=== PATIENT | male | born 1990 | race Caucasian/White ===

== ENCOUNTER 2016-12-18 16:33 | Emergency (ER) | payer OTHER ==
[2016-12-18 17:21] LABS: BILIRUBIN,URINE NEGATIVE (NEGATIVE); PH,URINE 6.5 PH (5.0-7.5)
[2016-12-18 17:32] LABS: UA CHARGE (STRIP ONLY) YES; UR CULTURE IF IND NOT INDICATED
[2016-12-18] MEDS ORDERED: HYDROcod/ACETAM 5/325 MG TABLET PO STA (19:27)
[2016-12-18 19:34] VITALS: BP 133/83
--- NOTE | 2016-12-18 19:35 | ED Physician Documentation ---
History of Present Illness - Stated complaint Stated Complaint: MALE - Chief complaint Chief Complaint: Abd Pain - History obtained from History obtained from: Patient, Family - History of Present Illness Timing: Chronic Pain level max: 7 Pain level now: 7 Improved by: nothing Worsened by: nothing - Additonal information Additional information: Patient is a 26-year-old male who presents to the emergency department with chronic prostatitis. Increased pain today. Sees his urologist tomorrow. No fevers. No vomiting. No difficulty with stream. Has had biopsies recently and has to have more performed tomorrow. Review of Systems Constitutional: denies: Fever, Chills Cardiac: denies: Chest pain / pressure Respiratory: denies: Cough GI: denies: Nausea, Vomiting : denies: Testicular pain, Testicular mass Skin: denies: Rash PD PAST MEDICAL HISTORY - Past Medical History Past Medical History: Yes Cardiovascular: None Respiratory: None Neuro: None : Other Psych: Post traumatic stress disorder Other Past Medical History: enlarged prostate, PTSD, CA - Past Surgical History Past Surgical History: Yes - Present Medications Home Medications: Ambulatory Orders Medication Instructions Recorded Confirmed oxyCODONE [Roxicodone] 10 mg PO Q4H PRN #20 tablet 02/14/16 Lorazepam [Ativan] 1 mg PO Q8H PRN #12 tablet 08/16/16 Naproxen 375 mg PO BID #15 tablet 08/16/16 Oxycodone HCl/Acetaminophen 1 each PO Q6HR PRN #15 tablet 08/16/16 [Oxycodone-Acetaminophen 10-325] Promethazine [Phenergan] 25 mg PO Q6H PRN #20 tab 08/16/16 oxyCODONE [Roxicodone] 5 - 10 mg PO Q6H PRN #20 tablet 11/23/16 Hydrocodone/Acetaminophen 1 each PO Q8H PRN #7 tablet 12/18/16 [Hydrocodon-Acetaminoph 7.5-325] Opium/Belladonn 60/16.2MG Supp [B 1 each ND Q6H #10 supp 12/18/16 & O Supp] - Allergies Allergies/Adverse Reactions: Allergies Allergy/AdvReac Type Severity Reaction Status Date / Time levofloxacin [From Levaquin] Allergy Unknown Verified 12/18/16 17:01 - Social History Does the pt smoke?: No Smoking Status: Never smoker Does the pt drink ETOH?: No Does the pt have substance abuse?: No - Immunizations Immunizations are current?: Yes PD ED PE NORMAL - Vitals Vital signs reviewed: Yes - General General: Alert and oriented X 3, No acute distress - Cardiac Cardiac: RRR - Respiratory Respiratory: No respiratory distress, Clear bilaterally - Abdomen Abdomen: Soft, Non tender, Non distended - Derm Derm: Warm and dry - Neuro Neuro: Alert and oriented X 3 - Psych Psych: Normal mood, Normal affect Results - Vitals Vitals: Oxygen O2 Source Room air - Labs Labs: Laboratory Tests 12/18/16 16:43 Urine Color YELLOW Urine Clarity CLEAR Urine pH 6.5 Ur Specific [place] 1.010 Urine Protein NEGATIVE Urine Glucose (UA) NEGATIVE Urine Ketones NEGATIVE Urine Occult Blood NEGATIVE Urine Nitrite NEGATIVE Urine Bilirubin NEGATIVE Urine Urobilinogen 0.2 (NORMAL) Ur Leukocyte Esterase NEGATIVE Ur Microscopic Review NOT INDICATED Urine Culture Comments NOT INDICATED PD MEDICAL DECISION MAKING - ED course Complexity details: reviewed old records, considered differential, d/w patient ED course: Patient with acute on chronic pain related to his chronic prostatitis. Sees urology tomorrow. Will trial on B and O suppositories along with a small amount of pain medication. Will follow up with his doctor for further evaluation and care. Patient counseled regarding signs and symptoms for which I believe and urgent re-evaluation would be necessary. Patient with good understanding of and agreement to plan and is comfortable going home at this time This document was made in part using voice recognition software. While efforts are made to proofread this document, sound alike and grammatical errors may occur. Departure - Departure Disposition: 01 Home, Self Care Clinical Impression: Prostatic pain Condition: Good Instructions: ED Prostatitis Follow-Up: Zain Kim MD [Primary Care Provider] - Within 1 week Prescriptions: Opium/Belladonn 60/16.2MG Supp [B & O Supp] 1 each ND Q6H #10 supp Hydrocodone/Acetaminophen [Hydrocodon-Acetaminoph 7.5-325] 1 each PO Q8H PRN #7 tablet PRN Reason: prostate pain Comments: Return if you worsen. Follow-up with [facility] tomorrow as scheduled. Do not drink alcohol or drive while on narcotic pain medicine. Note that many narcotic pain relievers also contain tylenol/acetaminophen. Please ensure that your total dose of acetaminophen from all sources does not exceed 3 grams (3000mg) per day. You may constipated on this medication, take a stool softener such as "Colace" twice a day while you are on it. Also recommend a [id number] laxative such as senna or MiraLAX any day that you do not have a bowel movement. If you received narcotic pain medication in the emergency department, do not drive or operate machinery for the next 24 hours. Discharge Date/Time: 12/18/16 19:48
[2016-12-18] MEDS ORDERED: HYDROcod/ACETAM 5/325 MG TABLET ONE (19:47)
== END 2016-12-18 19:48 | disposition home or self-care (01) ==
LOC: ED 16:33
DX: R10.30 Lower abdominal pain, unspecified (principal); N41.1 Chronic prostatitis; N40.0 Benign prostatic hyperplasia without lower urinary tract symptoms
CPT/HCPCS: 81003; 99283; A9270; 81001; 87086

== ENCOUNTER 2017-01-09 13:47 | Emergency (ER) | payer OTHER ==
[2017-01-09] MEDS ORDERED: DEXAMETHASONE 10 MG/ML VIAL PO STA (14:37)
--- NOTE | 2017-01-09 14:42 | ED Physician Documentation ---
PD HPI MALE - Stated complaint Stated Complaint: MALE - Chief complaint Chief Complaint: Abd Pain - History obtained from History obtained from: Patient - History of Present Illness Timing - onset: How many days ago (2) Timing - duration: Days (2) Timing - details: Gradual onset, Still present Associated symptoms: Other (pelvic pain/fullness) PD HPI MALE CONTRIB FACTORS: Sexually active. No: Exposed to STD Similar symptoms before: Diagnosis (prostate enlarged inflamed) Recently seen: Other (has regular visits to the urologist over this issue.) - Additional information Additional information: 26-year-old male with a prior history of testicular cancer has a history of prostate enlargement and intermittent episodes of pain. He was at work under a crawl space 2 days ago when he strained himself and following that he has had inflammation of his prostate again that is causing pain. He has had this happen to him previously usually last 3-4 days and his doctor usually will prescribe some oxycodone for him. He has been under treatment for his prostate for the past 2 years and he has tried multiple different antibiotics he has had a biopsy he is been to see the urologist at the [facility] and he is preparing to have a nerve ablation done. Review of Systems Constitutional: denies: Fever, Chills, Myalgias, Fatigue Eyes: denies: Decreased vision Ears: denies: Ear pain Nose: denies: Congestion Throat: denies: Sore throat Cardiac: denies: Chest pain / pressure, Palpitations Respiratory: denies: Dyspnea, Cough GI: denies: Abdominal Pain, Nausea, Vomiting : reports: Other (Pelvic fullness and cramping). denies: Dysuria, Frequency, Discharge Skin: denies: Rash Musculoskeletal: denies: Neck pain, Back pain, Extremity pain PD PAST MEDICAL HISTORY - Past Medical History Cardiovascular: None Respiratory: None Neuro: None : Other Psych: Post traumatic stress disorder - Past Surgical History Past Surgical History: Yes - Present Medications Home Medications: Ambulatory Orders Medication Instructions Recorded Confirmed Alprazolam [Xanax] 0.5 mg PO TID PRN 01/09/17 01/09/17 Cyclobenzaprine [Flexeril] 10 mg PO TID PRN 01/09/17 01/09/17 Sertraline [Zoloft] 3 tab PO DAILY 01/09/17 01/09/17 Terazosin HCl 1 tab PO DAILY 01/09/17 01/09/17 oxyCODONE/ACET 5/325 [Percocet 5 1 - 2 each PO Q6H PRN #20 tablet 01/09/17 mg/325 mg] - Allergies Allergies/Adverse Reactions: Allergies Allergy/AdvReac Type Severity Reaction Status Date / Time levofloxacin [From Levaquin] Allergy Unknown Verified 12/18/16 17:01 celecoxib [From Celebrex] AdvReac Headache Verified 01/09/17 14:04 indomethacin AdvReac Headache Verified 01/09/17 14:04 - Social History Does the pt smoke?: No Smoking Status: Never smoker Does the pt drink ETOH?: No Does the pt have substance abuse?: No - Immunizations Immunizations are current?: Yes PD ED PE NORMAL - Vitals Vital signs reviewed: Yes (Tachycardic and hypertensive) - General General: No acute distress, Well developed/nourished - HEENT HEENT: Atraumatic, PERRL - Neck Neck: Supple, no meningeal sign - Respiratory Respiratory: No respiratory distress - Derm Derm: Normal color, Warm and dry, No rash - Extremities Extremities: No deformity, No edema - Neuro Neuro: No motor deficit, No sensory deficit - Psych Psych: Normal mood, Normal affect Results - Vitals Vitals: Vital Signs - 24 hr 01/09/17 13:50 Temperature 36.6 C Heart Rate 114 H Respiratory 18 Rate Blood Pressure 155/94 H O2 Saturation 99 Oxygen O2 Source Room air PD MEDICAL DECISION MAKING - ED course Complexity details: considered differential, d/w patient, d/w family ED course: 26-year-old male with chronic prostate inflammation has done something to irritate his prostate. He has done this a number of times previously. He has usually had this last 3-4 days. He is on his second day. Here in the emergency department he is given dexamethasone as a single dose. He has indicated that prednisone did help when he took this previously. Departure - Departure Disposition: 01 Home, Self Care Clinical Impression: Prostatic pain Condition: Stable Instructions: ED Prostatitis Follow-Up: Zain Kim MD [Primary Care Provider] - Prescriptions: oxyCODONE/ACET 5/325 [Percocet 5 mg/325 mg] 1 - 2 each PO Q6H PRN #20 tablet PRN Reason: Pain
[2017-01-09] MEDS ORDERED: CHERRY SYRUP 10 ML UDC PO ONE (14:46)
[2017-01-09] MEDS ORDERED: DEXAMETHASONE 10 MG/ML VIAL ONE (14:46)
[2017-01-09 14:55] VITALS: BP 138/89
== END 2017-01-09 14:56 | disposition home or self-care (01) ==
LOC: ED 13:47
DX: N42.89 Other specified disorders of prostate (principal); N41.1 Chronic prostatitis; Z85.47 Personal history of malignant neoplasm of testis
CPT/HCPCS: 99283; A9270

== ENCOUNTER 2017-03-02 18:20 | Emergency (ER) | payer OTHER ==
[2017-03-02 19:16] LABS: BASOPHILS % (AUTO) 0.3 %; EOSINOPHILS % (AUTO) 0.1 %; HCT - HEMATOCRIT 47.1 % (42.0-52.0); LYMPHOCYTES % (AUTO) 21.1 %; MEAN CORPUSCULAR HEMOGLOBIN 29.5 pg (27.0-31.0); MEAN CORPUSCULAR VOLUME 86.8 fL (80.0-94.0); MEAN PLATELET VOLUME 8.3 fL (7.4-11.4); MONOCYTES # (AUTO) 0.4 10^3/uL (0.0-1.0); MONOCYTES % (AUTO) 3.8 %; NEUTROPHILS # (AUTO) 7.2 10^3/uL (1.5-6.6); NEUTROPHILS % (AUTO) 74.7 %; NUCLEATED RED BLOOD CELLS AUTO 0.1 /100WBC; RED BLOOD COUNT 5.43 10^6/uL (4.70-6.10); UNCORRECTED WHITE BLOOD COUNT 9.7 x10^3/uL; WHITE BLOOD COUNT 9.7 x10^3/uL (4.8-10.8)
[2017-03-02 19:30] LABS: ALBUMIN/GLOBULIN RATIO 1.5 (1.0-2.2); BILIRUBIN,TOTAL 0.7 mg/dL (0.2-1.0); CREATININE 0.7 mg/dL (0.6-1.2); POTASSIUM 3.5 mmol/L (3.5-5.0); TOTAL PROTEIN 8.4 g/dL (6.7-8.2)
--- NOTE | 2017-03-02 20:39 | ED Physician Documentation ---
PD HPI BACK PAIN - Stated complaint Stated Complaint: BACK MUSCLE PX - Chief complaint Chief Complaint: General - History obtained from History obtained from: Patient - History of Present Illness Timing - onset: How many days ago (2) Timing - duration: Days (2) Timing - details: Gradual onset, Still present Location: Lower (and lower abd/pelvic area) Quality: Pain, Spasm Associated symptoms: Other (frequency of urine). No: Fever, Weakness, Incontinent of urine Improves with: No: Rest, Position Worsened by: No: Movement, Twisting Contributing factors: No: Lifting, Twisting, Trauma Similar symptoms before: Diagnosis (pelvic swelling and muscle spasms in pelvic area.) Recently seen: Not recently seen Review of Systems Constitutional: denies: Fever, Chills GI: reports: Abdominal Pain, Nausea. denies: Vomiting, Constipation, Diarrhea : reports: Frequency. denies: Dysuria, Incontinent Skin: denies: Rash, Lesions Musculoskeletal: reports: Back pain (lower lumbar/sacral area). denies: Neck pain PD PAST MEDICAL HISTORY - Past Medical History Cardiovascular: None Respiratory: None Neuro: None : Other (prostatitis chronic. Has prior testicular cancer with surgery for testicle and ab) Psych: Post traumatic stress disorder - Past Surgical History Past Surgical History: Yes - Present Medications Home Medications: Ambulatory Orders Medication Instructions Recorded Confirmed Sertraline [Zoloft] 3 tab PO DAILY 01/09/17 03/02/17 Terazosin HCl 1 tab PO DAILY 01/09/17 03/02/17 Dexamethasone [Decadron] 4 mg PO DAILY #5 tablet 03/02/17 Oxybutynin [Ditropan] 5 mg PO TID PRN #15 tablet 03/02/17 Tramadol HCl 50 mg PO Q6H PRN #20 tablet 03/02/17 - Allergies Allergies/Adverse Reactions: Allergies Allergy/AdvReac Type Severity Reaction Status Date / Time levofloxacin [From Levaquin] Allergy Unknown Verified 03/02/17 18:31 celecoxib [From Celebrex] AdvReac Headache Verified 03/02/17 18:31 indomethacin AdvReac Headache Verified 03/02/17 18:31 - Social History Does the pt smoke?: No Smoking Status: Never smoker Does the pt drink ETOH?: No Does the pt have substance abuse?: No - Immunizations Immunizations are current?: Yes PD ED PE NORMAL - Vitals Vital signs reviewed: Yes - General General: Alert and oriented X 3, No acute distress, Well developed/nourished, Other - HEENT HEENT: Pharynx benign - Neck Neck: Supple, no meningeal sign, No adenopathy - Cardiac Cardiac: RRR, No murmur - Respiratory Respiratory: Clear bilaterally - Abdomen Abdomen: Soft, Non tender - Male Male : Other (right testicle missing. No herniae. No skin redness nor sores. Penis normal. ) - Rectal Rectal: Deferred Results - Vitals Vitals: Oxygen O2 Source Room air - Labs Labs: Laboratory Tests 03/02/17 03/02/17 03/02/17 19:05 19:05 21:19 WBC 9.7 RBC 5.43 Hgb 16.0 Hct 47.1 MCV 86.8 MCH 29.5 MCHC 34.0 RDW 13.0 Plt Count 281 MPV 8.3 Neut # 7.2 H Lymph # 2.0 [place] # 0.4 Eos # 0.0 Baso # 0.0 Absolute Nucleated RBC 0.01 Nucleated RBC % 0.1 Sodium 139 Potassium 3.5 Chloride 104 Carbon Dioxide 22 Anion Gap 13.0 BUN 8 Creatinine 0.7 Estimated GFR (MDRD) 135 Glucose 112 H Calcium 10.0 Total Bilirubin 0.7 AST 27 ALT 25 Alkaline Phosphatase 54 Total Protein 8.4 H Albumin 5.1 Globulin 3.3 Albumin/Globulin Ratio 1.5 Lipase 21 L Urine Color YELLOW Urine Clarity CLEAR Urine pH 6.0 Ur Specific [place] 1.025 Urine Protein NEGATIVE Urine Glucose (UA) NEGATIVE Urine Ketones 15 H Urine Occult Blood NEGATIVE Urine Nitrite NEGATIVE Urine Bilirubin NEGATIVE Urine Urobilinogen 0.2 (NORMAL) Ur Leukocyte Esterase NEGATIVE Ur Microscopic Review NOT INDICATED Urine Culture Comments NOT INDICATED PD MEDICAL DECISION MAKING - ED course Complexity details: considered differential (h/o prostate enlargement and infection. Has had some spasm/muscle cramp tupe pains in area. Bladder scan post void showed zero, suggesting spasm and over-emptying.), d/w patient Departure - Departure Disposition: 01 Home, Self Care Clinical Impression: Spasm of muscle of lower back, Painful bladder spasm, Prostatic pain Condition: Stable Record reviewed to determine appropriate education?: Yes Follow-Up: Zain Kim MD [Primary Care Provider] - Prescriptions: Dexamethasone [Decadron] 4 mg PO DAILY #5 tablet Oxybutynin [Ditropan] 5 mg PO TID PRN #15 tablet PRN Reason: Spasms Tramadol HCl 50 mg PO Q6H PRN #20 tablet PRN Reason: Pain Comments: Continue the Decadron steroid daily for 5 more days for presumed inflammation. Tylenol or ibuprofen if needed for mild pain. I think her having some bladder spasm component and so use the oxybutynin 3 times a day as needed for spasms. Add tramadol if needed for pain. Follow-up with Dr. Kim over the next several days. Discharge Date/Time: 03/02/17 22:32
[2017-03-02] MEDS ORDERED: KETOROLAC 60 MG/2 ML VIAL IM STA (21:14)
[2017-03-02] MEDS ORDERED: OXYBUTYNIN 5MG TABLET PO STA (21:15)
[2017-03-02] MEDS ORDERED: DEXAMETHASONE 10 MG/ML VIAL PO STA (21:15)
[2017-03-02] MEDS ORDERED: traMADol 50 MG TABLET PO STA (21:15)
[2017-03-02] MEDS ORDERED: traMADol 50 MG TABLET PO ONE (21:28)
[2017-03-02] MEDS ORDERED: KETOROLAC 30 MG/ML VIAL ONE (21:29)
[2017-03-02] MEDS ORDERED: DEXAMETHASONE 10 MG/ML VIAL ONE (21:29)
[2017-03-02 21:32] LABS: UA CHARGE (STRIP ONLY) YES; UR CULTURE IF IND NOT INDICATED
[2017-03-02 21:33] LABS: BILIRUBIN,URINE NEGATIVE (NEGATIVE)
[2017-03-02 22:31] VITALS: BP 117/80
== END 2017-03-02 22:32 | disposition home or self-care (01) ==
LOC: ED 18:20
DX: M62.830 Muscle spasm of back (principal); R39.89 Other symptoms and signs involving the genitourinary system; N42.89 Other specified disorders of prostate
CPT/HCPCS: 36415; 51798; 80053; 81003; 83690; 85025; 96372; 99283; A9270; 81001; 87086

== ENCOUNTER 2017-03-07 12:16 | Emergency (ER) | payer OTHER ==
[2017-03-07 13:01] VITALS: BP 153/94
[2017-03-07] MEDS ORDERED: DEXAMETHASONE 10 MG/ML VIAL IM STA (13:11)
--- NOTE | 2017-03-07 13:13 | ED Physician Documentation ---
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.) Review of Systems Constitutional: denies: Fever, Chills Throat: reports: Reviewed and negative Respiratory: reports: Reviewed and negative GI: reports: Reviewed and negative PD PAST MEDICAL HISTORY - Past Medical History Past Medical History: Yes Cardiovascular: None Respiratory: None Neuro: None : Other Psych: Post traumatic stress disorder Other Past Medical History: Hx cancer - Past Surgical History Past Surgical History: Yes - Present Medications Home Medications: Ambulatory Orders Medication Instructions Recorded Confirmed Sertraline [Zoloft] 3 tab PO DAILY 01/09/17 03/07/17 Terazosin HCl 5 tab PO DAILY 01/09/17 03/07/17 Tramadol HCl 50 mg PO Q6H PRN #20 tablet 03/02/17 03/07/17 Oxycodone HCl/Acetaminophen 1 each PO Q6H PRN #15 tablet 03/07/17 [Percocet 10-325 mg Tablet] predniSONE [Deltasone] 20 mg PO [id number] #21 tab 03/07/17 - Allergies Allergies/Adverse Reactions: Allergies Allergy/AdvReac Type Severity Reaction Status Date / Time levofloxacin [From Levaquin] Allergy Unknown Verified 03/07/17 12:25 celecoxib [From Celebrex] AdvReac Headache Verified 03/07/17 12:25 indomethacin AdvReac Headache Verified 03/07/17 12:25 - Social History Does the pt smoke?: No Smoking Status: Never smoker Does the pt drink ETOH?: No Does the pt have substance abuse?: No - Immunizations Immunizations are current?: Yes PD ED PE NORMAL - Vitals Vital signs reviewed: Yes - General General: Alert and oriented X 3, No acute distress - Back Back: Other (Lumbar spine is nontender although he does wince a bit with motion. He has partially and mildly diminished sensation in the left L4-L5 distribution, but symmetric Babinski and patellar reflexes, normal strength in flexion and extension at the ankles and knees.) - Neuro Neuro: Alert and oriented X 3, Normal speech Results - Vitals Vitals: Vital Signs - 24 hr 03/07/17 03/07/17 12:20 13:00 Temperature 36.5 C 37.0 C Heart Rate 55 L 67 Respiratory 16 17 Rate Blood Pressure 147/87 H 153/94 H O2 Saturation 95 99 Oxygen O2 Source Room air - Labs Labs: Laboratory Tests 03/07/17 13:18 Urine Opiates Screen NEGATIVE Ur Oxycodone Screen NEGATIVE Urine Methadone Screen NEGATIVE Ur Propoxyphene Screen NEGATIVE Ur Barbiturates Screen NEGATIVE Ur Tricyclics Screen NEGATIVE Ur Phencyclidine Scrn NEGATIVE Ur Amphetamine Screen NEGATIVE U Methamphetamines Scrn NEGATIVE U Benzodiazepines Scrn NEGATIVE Urine Cocaine Screen NEGATIVE U Cannabinoids Screen NEGATIVE PD MEDICAL DECISION MAKING - ED course ED course: Prescription monitoring program was reviewed before going into the room, notable for looking like he was in pain management receiving 112, 10 mg oxycodone/acetaminophen every month from a pain management nurse practitioner. Last prescription was on February 13. He did not mention this when I asked him if he taking any pain medications. When I confronted him with this information he says he was recently kicked out of pain management for discordant drug screens. Because of that I offered to give him a small number of narcotics if he passed a drug screen other than things that might be expected on there and he was cooperative with that idea. This patient has seemingly uncomplicated musculoskeletal back pain. The patient has no "red flags." Specifically denies IV drug use, fevers, incontinence, saddle anesthesia. Spinal epidural abscess was considered, given that the patient has no fever, is not diabetic, has no spinal tenderness, does not use IV drugs, and has no bilateral neurologic symptoms, the diagnosis of spinal epidural abscess is considered exceedingly unlikely. Departure - Departure Disposition: 01 Home, Self Care Clinical Impression: Lumbar radiculopathy, acute Condition: Good Record reviewed to determine appropriate education?: Yes Instructions: ED Sciatica Prescriptions: Oxycodone HCl/Acetaminophen [Percocet 10-325 mg Tablet] 1 each PO Q6H PRN #15 tablet PRN Reason: Pain predniSONE [Deltasone] 20 mg PO [id number] #21 tab Comments: Call your doctor to arrange a follow-up appointment, make the next available appointment. In the interim, return anytime if worse or if new symptoms develop. Your blood pressure was elevated today on check into the emergency department. This does not mean that you have hypertension, it is a common phenomenon to come to the emergency department and have elevated blood pressure. I recommend that you see your primary care physician within the week to have it rechecked when you are feeling better. Do not drink or drive while taking narcotic pain medication. Note that many narcotic pain relievers also contain Tylenol/acetaminophen. Please ensure that your total dose of acetaminophen from all sources does not exceed 3 g (3000 mg) per day. You may get constipated while on this medication. Take a stool softener such as Colace twice a day while you are on it. Also add an [id number] laxative such as senna or MiraLAX on any day that you do not have a bowel movement. If you received a narcotic pain medication or sedative while in the emergency department, do not drive for the next 24 hours. Discharge Date/Time: 03/07/17 14:20
[2017-03-07] MEDS ORDERED: DEXAMETHASONE 10 MG/ML VIAL ONE (13:27)
[2017-03-07] MEDS ORDERED: oxyCOD/ACETAMIN 5 MG/325 MG TABLET PO STA (14:07)
[2017-03-07] MEDS ORDERED: oxyCOD/ACETAMIN 5 MG/325 MG TABLET PO ONE (14:22)
== END 2017-03-07 14:20 | disposition home or self-care (01) ==
LOC: ED 12:16
DX: M54.16 Radiculopathy, lumbar region (principal); R03.0 Elevated blood-pressure reading, without diagnosis of hypertension; G89.29 Other chronic pain; Z85.47 Personal history of malignant neoplasm of testis
CPT/HCPCS: 80306; 96372; 99283; A9270

== ENCOUNTER 2017-03-11 14:46 | Emergency (ER) | payer OTHER ==
[2017-03-11 17:21] VITALS: BP 122/85
--- NOTE | 2017-03-11 17:42 | ED Physician Documentation ---
History of Present Illness - Stated complaint Stated Complaint: BACK PAIN - Chief complaint Chief Complaint: Back Pain - History obtained from History obtained from: Patient (pt is here for evaluation of right sided back pain. he was seen in the ER on friday for acute onset of the pain. stated that he had a neg work up. was seen by his PCM yesterday. he states that he went back to work today and bent over and felt another pop and had an increase in his pain. No new symptoms, no urinary sx, no bowel sx, no fevers.) Review of Systems Unable to obtain: Unresponsive Constitutional: denies: Fever, Chills Cardiac: denies: Chest pain / pressure Respiratory: denies: Dyspnea GI: denies: Abdominal Pain, Nausea, Vomiting, Constipation, Diarrhea : denies: Dysuria, Frequency Skin: denies: Rash, Lesions Musculoskeletal: reports: Back pain. denies: Neck pain, Extremity pain, Joint pain Neurologic: denies: Generalized weakness, Focal weakness, Numbness, Headache, LOC PD PAST MEDICAL HISTORY - Past Medical History Cardiovascular: None Respiratory: None Neuro: None : Other Psych: Post traumatic stress disorder - Past Surgical History Past Surgical History: Yes - Present Medications Home Medications: Ambulatory Orders Medication Instructions Recorded Confirmed Sertraline [Zoloft] 3 tab PO DAILY 01/09/17 03/11/17 Terazosin HCl 5 tab PO DAILY 01/09/17 03/11/17 Tramadol HCl 50 mg PO Q6H PRN #20 tablet 03/02/17 03/11/17 Oxycodone HCl/Acetaminophen 1 each PO Q6H PRN #15 tablet 03/07/17 03/11/17 [Percocet 10-325 mg Tablet] predniSONE [Deltasone] 20 mg PO [id number] #21 tab 03/07/17 03/11/17 HYDROcodone/ACET 10/325 [[place] 10 1 each PO Q6H #10 tablet 03/11/17 mg/325 mg] - Allergies Allergies/Adverse Reactions: Allergies Allergy/AdvReac Type Severity Reaction Status Date / Time levofloxacin [From Levaquin] Allergy Unknown Verified 03/07/17 12:25 celecoxib [From Celebrex] AdvReac Headache Verified 03/07/17 12:25 indomethacin AdvReac Headache Verified 03/07/17 12:25 - Social History Does the pt smoke?: No Smoking Status: Never smoker Does the pt drink ETOH?: No Does the pt have substance abuse?: No - Immunizations Immunizations are current?: Yes PD ED PE NORMAL - Vitals Vital signs reviewed: Yes - General General: Alert and oriented X 3, No acute distress, Well developed/nourished - Abdomen Abdomen: Normal bowel sounds, Soft, Non tender - Back Back: No CVA TTP, No spinal TTP, Other (TTP left paraspinal area. No muscle fullness. ) - Derm Derm: Normal color, No rash - Neuro Neuro: Alert and oriented X 3, No motor deficit, No sensory deficit, Normal speech Results - Vitals Vitals: Vital Signs - 24 hr 03/11/17 03/11/17 14:54 17:20 Temperature 36.8 C Heart Rate 86 75 Respiratory 18 18 Rate Blood Pressure 134/90 H 122/85 H O2 Saturation 98 99 Oxygen O2 Source Room air PD MEDICAL DECISION MAKING - ED course Complexity details: d/w patient ED course: Pt with acute increase in his back pain, doubt CA, fracture, zoster or mets. Discussed with pt. offered toradol but he declined. He has NSAID's at home. is on steroids from his last visit. informed him that it may take weeks for this to get better. he expressed understanding. Departure - Departure Disposition: 01 Home, Self Care Clinical Impression: Back pain Condition: Good Instructions: ED Low Back Pain Injury Follow-Up: Zain Kim MD [Primary Care Provider] - Prescriptions: HYDROcodone/ACET 10/325 [[place] 10 mg/325 mg] 1 each PO Q6H #10 tablet Comments: Treatments like we discussed. Return to the ER for any new or worsening symptoms. Forms: Activity restrictions
[2017-03-11] MEDS ORDERED: HYDROcod/ACETAM 5/325 MG TABLET PO STA (17:50)
[2017-03-11] MEDS ORDERED: HYDROcod/ACETAM 5/325 MG TABLET ONE (17:58)
== END 2017-03-11 17:55 | disposition home or self-care (01) ==
LOC: ED 14:46
DX: M54.9 Dorsalgia, unspecified (principal)
CPT/HCPCS: 99283; A9270

== ENCOUNTER 2017-06-11 14:29 | Emergency (ER) | payer OTHER ==
[2017-06-11 14:58] VITALS: BP 101/62
[2017-06-11] MEDS ORDERED: LORazepam 0.5 MG TABLET PO STA (15:41)
--- NOTE | 2017-06-11 15:44 | ED Physician Documentation ---
PD HPI MHE - Stated complaint Stated Complaint: NIGHT TERRORS,ANXIETY - Chief complaint Chief Complaint: MHE - History obtained from History obtained from: Patient - History of Present Illness Primary symptom: Anxiety (Long standing anxiety and depression worse for the last 5 days with poor sleep. No SI/HI. Has been on ativan 2mg PO TID in the past which helped but was too strong.) Review of Systems Constitutional: reports: Reviewed and negative Cardiac: reports: Reviewed and negative Respiratory: reports: Reviewed and negative PD PAST MEDICAL HISTORY - Past Medical History Past Medical History: Yes Cardiovascular: None Respiratory: None Neuro: None : Other Psych: Post traumatic stress disorder - Past Surgical History Past Surgical History: Yes - Present Medications Home Medications: Ambulatory Orders Medication Instructions Recorded Confirmed Sertraline [Zoloft] 3 tab PO DAILY 01/09/17 03/11/17 Terazosin HCl 5 tab PO DAILY 01/09/17 03/11/17 Tramadol HCl 50 mg PO Q6H PRN #20 tablet 03/02/17 03/11/17 Oxycodone HCl/Acetaminophen 1 each PO Q6H PRN #15 tablet 03/07/17 03/11/17 [Percocet 10-325 mg Tablet] predniSONE [Deltasone] 20 mg PO [id number] #21 tab 03/07/17 03/11/17 HYDROcodone/ACET 10/325 [[place] 10 1 each PO Q6H #10 tablet 03/11/17 mg/325 mg] Lorazepam [Ativan] 1 mg PO TID PRN #15 tablet 06/11/17 - Allergies Allergies/Adverse Reactions: Allergies Allergy/AdvReac Type Severity Reaction Status Date / Time levofloxacin [From Levaquin] Allergy Unknown Verified 03/07/17 12:25 celecoxib [From Celebrex] AdvReac Headache Verified 03/07/17 12:25 indomethacin AdvReac Headache Verified 03/07/17 12:25 - Social History Does the pt smoke?: No Smoking Status: Never smoker Does the pt drink ETOH?: No Does the pt have substance abuse?: No - Immunizations Immunizations are current?: Yes PD ED PE NORMAL - Vitals Vital signs reviewed: Yes - General General: Alert and oriented X 3, No acute distress - Neuro Neuro: Alert and oriented X 3, Normal speech Eye Opening: Spontaneous Motor: Obeys Commands Verbal: Oriented GCS Score: 15 - Psych Psych: Normal mood, Normal affect Results - Vitals Vitals: Vital Signs - 24 hr 06/11/17 14:53 Temperature 36.4 C L Heart Rate 72 Respiratory 22 Rate Blood Pressure 101/62 O2 Saturation 98 Oxygen O2 Source Room air PD MEDICAL DECISION MAKING - ED course ED course: I offered telepsych but would prefer to see a psychiatrist in person. Departure - Departure Disposition: Home, Self Care Condition: Good Record reviewed to determine appropriate education?: Yes Instructions: ED Stress React Follow-Up: Zain Kim MD [Primary Care Provider] - Prescriptions: Lorazepam [Ativan] 1 mg PO TID PRN #15 tablet PRN Reason: Anxiety
--- NOTE | 2017-06-12 12:51 | ED Physician Documentation ---
ED Addendum - Addendum Addendum: 06/12/17 12:51 Diagnosis, anxiety.
== END 2017-06-11 16:00 | disposition home or self-care (01) ==
LOC: ED 14:29
DX: F41.8 Other specified anxiety disorders (principal); F43.10 Post-traumatic stress disorder, unspecified
CPT/HCPCS: 99283; A9270

== ENCOUNTER 2017-06-12 13:59 | Emergency (ER) | payer OTHER ==
[2017-06-12] MEDS ORDERED: DEXAMETHASONE 10 MG/ML VIAL IVP STA (14:48)
[2017-06-12] MEDS ORDERED: HYDROmorphone 1 MG/ML SYRINGE IVP STA (14:48)
[2017-06-12] MEDS ORDERED: ONDANSETRON 4 MG/2 ML VIAL IVP STA (14:48)
[2017-06-12] MEDS ORDERED: SODIUM CHLORIDE 0.9% 1,000 ML IV ONE (14:48)
--- NOTE | 2017-06-12 14:49 | ED Physician Documentation ---
PD HPI MALE - Stated complaint Stated Complaint: RECTAL PAIN - Chief complaint Chief Complaint: General - History obtained from History obtained from: Patient, Family - History of Present Illness Timing - onset: How many days ago (2) Timing - duration: Days (2) Timing - details: Gradual onset, Still present Associated symptoms: Other (prostate pain similar to prior) PD HPI MALE CONTRIB FACTORS: Sexually active Similar symptoms before: Diagnosis (prostatitis/prostate inflamation) Recently seen: Emergency Dept - Additional information Additional information: 27-year-old male with a prior history of testicular cancer treated with orchidectomy and Retroperitoneal lymph node dissection has had problems with intermittent prostatitis. He has had inflammation of the prostate and feels that none of the treatments that he has had has had have resolved this issue. He indicates that if he is does too much strenuous activity he will have inflammation. He has had inflammation now for the past 2 days and he is quite uncomfortable he does get some vomiting with this happens and feels that he is dehydrated. Review of Systems Constitutional: reports: Chills. denies: Fever Eyes: denies: Decreased vision Ears: denies: Ear pain Nose: denies: Rhinorrhea / runny nose, Congestion Throat: denies: Sore throat Cardiac: denies: Chest pain / pressure, Palpitations Respiratory: denies: Dyspnea, Cough GI: reports: Abdominal Pain, Nausea, Vomiting : denies: Dysuria, Frequency Skin: denies: Rash, Lesions Musculoskeletal: reports: Back pain. denies: Neck pain, Extremity pain Neurologic: denies: Generalized weakness, Focal weakness, Numbness PD PAST MEDICAL HISTORY - Past Medical History Cardiovascular: None Respiratory: None Neuro: None : Other Psych: Post traumatic stress disorder - Past Surgical History Past Surgical History: Yes - Present Medications Home Medications: Ambulatory Orders Medication Instructions Recorded Confirmed Sertraline [Zoloft] 3 tab PO DAILY 01/09/17 03/11/17 Terazosin HCl 5 tab PO DAILY 01/09/17 03/11/17 Tramadol HCl 50 mg PO Q6H PRN #20 tablet 03/02/17 03/11/17 Oxycodone HCl/Acetaminophen 1 each PO Q6H PRN #15 tablet 03/07/17 03/11/17 [Percocet 10-325 mg Tablet] predniSONE [Deltasone] 20 mg PO [id number] #21 tab 03/07/17 03/11/17 HYDROcodone/ACET 10/325 [[place] 10 1 each PO Q6H #10 tablet 03/11/17 mg/325 mg] Lorazepam [Ativan] 1 mg PO TID PRN #15 tablet 06/11/17 Dexamethasone [Decadron] 4 mg PO DAILY #5 tablet 06/12/17 - Allergies Allergies/Adverse Reactions: Allergies Allergy/AdvReac Type Severity Reaction Status Date / Time levofloxacin [From Levaquin] Allergy Unknown Verified 03/07/17 12:25 celecoxib [From Celebrex] AdvReac Headache Verified 03/07/17 12:25 indomethacin AdvReac Headache Verified 03/07/17 12:25 - Social History Does the pt smoke?: No Smoking Status: Never smoker Does the pt drink ETOH?: No Does the pt have substance abuse?: No - Immunizations Immunizations are current?: Yes PD ED PE NORMAL - Vitals Vital signs reviewed: Yes (tachy and hpyertensive ) - General General: Alert and oriented X 3, Well developed/nourished, Other (27 y/o male appears to be in pain ) - HEENT HEENT: Atraumatic, PERRL, EOMI - Neck Neck: Supple, no meningeal sign, No bony TTP - Cardiac Cardiac: No murmur, Other (tachy to 100) - Respiratory Respiratory: No respiratory distress, Clear bilaterally - Abdomen Abdomen: Soft, Non tender, Other (well healed long midline scar) - Rectal Rectal: Other (rectal tone is normal there no internal or external hemorrhoids. The prostate is midly enlarged boggy and tender reproducing the symptoms the patient is having. Prostate massage is done with continuous pressure and the gland does shrink partially ) - Back Back: No CVA TTP, No spinal TTP - Derm Derm: Normal color, Warm and dry, No rash - Extremities Extremities: No deformity, No edema - Neuro Neuro: No motor deficit, No sensory deficit Eye Opening: Spontaneous Motor: Obeys Commands Verbal: Oriented GCS Score: 15 - Psych Psych: Normal mood, Normal affect Results - Vitals Vitals: Vital Signs - 24 hr 06/12/17 06/12/17 14:05 17:08 Temperature 37.1 C 37.1 C Heart Rate 112 H 87 Respiratory 18 18 Rate Blood Pressure 129/86 H 139/122 H O2 Saturation 100 100 Oxygen O2 Source Room air - Labs Labs: Laboratory Tests 06/12/17 06/12/17 06/12/17 15:50 15:50 16:30 WBC 8.3 RBC 5.46 Hgb 16.4 Hct 46.8 MCV 85.7 MCH 30.0 MCHC 35.0 RDW 12.3 Plt Count 280 MPV 8.5 Neut # 6.0 Lymph # 1.8 [place] # 0.3 Eos # 0.0 Baso # 0.0 Absolute Nucleated RBC 0.00 Nucleated RBC % 0.0 Sodium 138 Potassium 3.4 L Chloride 102 Carbon Dioxide 24 Anion Gap 12.0 BUN 9 Creatinine 0.9 Estimated GFR (MDRD) 100 Glucose 92 Calcium 9.6 Total Bilirubin 0.8 AST 23 ALT 22 Alkaline Phosphatase 62 Total Protein 8.7 H Albumin 5.2 Globulin 3.5 Albumin/Globulin Ratio 1.5 Lipase 21 L Urine Color YELLOW Urine Clarity CLEAR Urine pH 7.0 Ur Specific [place] 1.020 Urine Protein NEGATIVE Urine Glucose (UA) NEGATIVE Urine Ketones 15 H Urine Occult Blood NEGATIVE Urine Nitrite NEGATIVE Urine Bilirubin SMALL H Urine Urobilinogen 0.2 (NORMAL) Ur Leukocyte Esterase NEGATIVE Ur Microscopic Review NOT INDICATED Urine Culture Comments NOT INDICATED PD MEDICAL DECISION MAKING - ED course Complexity details: reviewed old records, reviewed results, re-evaluated patient , considered differential, d/w patient, d/w family ED course: 27-year-old male with a history of chronic prostatitis has developed an acute inflammation of his prostate I do not believe that this is an infectious process I am concerned that the patient may have some swelling that is related to the retroperitoneal lymph node dissection. We administered IV decadron and we will provide the patient with a 5 day course and have him follow up with his urologist. Here in the ED he was hydrated with a liter of saline and he did receive IV dilaudid which did help with the pain. Departure - Departure Disposition: 01 Home, Self Care Clinical Impression: Prostatic pain Instructions: Prostatitis Chronic Pelvic Pain, ED Prostatitis Follow-Up: Zain Kim MD [Primary Care Provider] - Prescriptions: Dexamethasone [Decadron] 4 mg PO DAILY #5 tablet Discharge Date/Time: 06/12/17 17:11
[2017-06-12 16:01] LABS: BASOPHILS % (AUTO) 0.6 %; EOSINOPHILS % (AUTO) 0.2 %; HGB - HEMOGLOBIN 16.4 g/dL (14.0-18.0); LYMPHOCYTES # (AUTO) 1.8 10^3/uL (1.5-3.5); LYMPHOCYTES % (AUTO) 22.3 %; MEAN CORPUSCULAR VOLUME 85.7 fL (80.0-94.0); MEAN PLATELET VOLUME 8.5 fL (7.4-11.4); MONOCYTES # (AUTO) 0.3 10^3/uL (0.0-1.0); MONOCYTES % (AUTO) 4.1 %; NEUTROPHILS % (AUTO) 72.8 %; PLT - PLATELET COUNT 280 10^3/uL (130-450); RED BLOOD COUNT 5.46 10^6/uL (4.70-6.10); RED CELL DISTRIBUTION WIDTH 12.3 % (12.0-15.0); WHITE BLOOD COUNT 8.3 x10^3/uL (4.8-10.8)
[2017-06-12 16:14] LABS: ALBUMIN 5.2 g/dL (3.2-5.5); ALBUMIN/GLOBULIN RATIO 1.5 (1.0-2.2); BILIRUBIN,TOTAL 0.8 mg/dL (0.2-1.0); CALCIUM 9.6 mg/dL (8.5-10.3); CREATININE 0.9 mg/dL (0.6-1.2); TOTAL PROTEIN 8.7 g/dL (6.7-8.2)
[2017-06-12 16:35] LABS: GLUCOSE, URINE (UA) NEGATIVE (NEGATIVE); KETONES,URINE (UA) 15 mg/dL (NEGATIVE); LEUKOCYTE ESTERASE, URINE NEGATIVE (NEGATIVE); NITRITE,URINE NEGATIVE (NEGATIVE); OCCULT BLOOD,URINE NEGATIVE (NEGATIVE); PROTEIN,URINE NEGATIVE (NEGATIVE); UROBILINOGEN,URINE 0.2 (NORMAL) E.U./dL (NORMAL)
[2017-06-12 16:45] LABS: CLARITY,URINE CLEAR (CLEAR)
[2017-06-12 16:46] LABS: BILIRUBIN,URINE SMALL (NEGATIVE); ICTOTEST,URINE POSITIVE
[2017-06-12 17:09] VITALS: BP 139/122
== END 2017-06-12 17:11 | disposition home or self-care (01) ==
LOC: ED 13:59
DX: Z85.47 Personal history of malignant neoplasm of testis (principal); N41.0 Acute prostatitis
CPT/HCPCS: 36415; 80053; 81003; 83690; 85025; 96361; 96374; 96375; 99283; J1170; 81001; 87086

== ENCOUNTER 2017-06-13 15:04 | Emergency (ER) | payer OTHER ==
[2017-06-13] MEDS ORDERED: SODIUM CHLORIDE 0.9% 1,000 ML IV ONE (15:30)
[2017-06-13] MEDS ORDERED: ONDANSETRON 4 MG/2 ML VIAL IVP STA (15:30)
[2017-06-13] MEDS ORDERED: MORPHINE 2 MG/ML CARPUJECT IVP STA (15:31)
--- NOTE | 2017-06-13 15:32 | ED Physician Documentation ---
History of Present Illness - Stated complaint Stated Complaint: LETHARGIC - Chief complaint Chief Complaint: General - History obtained from History obtained from: Patient - History of Present Illness Timing: Other (27-year-old gentleman with history of testicular cancer status post remote retroperitoneal lymph node dissection whose had trouble with his prostate ever since and has been seeing [facility] urology. Recently he has been having some psychiatric issues with anxiety and depression. Yesterday was here for pain and administer narcotics but none were given to go home with. Review of the chart shows there is a concern for history of narcotic abuse and addiction. Today his pain was very bad and he was having both vomiting and diarrhea with blood streaks in both with diffuse body pain and he passed out "because of the pain.") Review of Systems Constitutional: reports: Chills, Sweats. denies: Fever Nose: denies: Rhinorrhea / runny nose Throat: denies: Sore throat Cardiac: denies: Chest pain / pressure, Palpitations Respiratory: denies: Dyspnea, Cough GI: reports: Nausea, Vomiting, Diarrhea PD PAST MEDICAL HISTORY - Past Medical History Cardiovascular: None Respiratory: None Neuro: None : Other Psych: Post traumatic stress disorder - Past Surgical History Past Surgical History: Yes - Present Medications Home Medications: Ambulatory Orders Medication Instructions Recorded Confirmed Sertraline [Zoloft] 3 tab PO DAILY 01/09/17 03/11/17 Terazosin HCl 5 tab PO DAILY 01/09/17 03/11/17 Tramadol HCl 50 mg PO Q6H PRN #20 tablet 03/02/17 03/11/17 Oxycodone HCl/Acetaminophen 1 each PO Q6H PRN #15 tablet 03/07/17 03/11/17 [Percocet 10-325 mg Tablet] predniSONE [Deltasone] 20 mg PO [id number] #21 tab 03/07/17 03/11/17 HYDROcodone/ACET 10/325 [[place] 10 1 each PO Q6H #10 tablet 03/11/17 mg/325 mg] Lorazepam [Ativan] 1 mg PO TID PRN #15 tablet 06/11/17 Dexamethasone [Decadron] 4 mg PO DAILY #5 tablet 06/12/17 Oxycodone HCl 10 mg PO Q6H PRN #10 tablet 06/13/17 - Allergies Allergies/Adverse Reactions: Allergies Allergy/AdvReac Type Severity Reaction Status Date / Time levofloxacin [From Levaquin] Allergy Unknown Verified 06/13/17 15:14 celecoxib [From Celebrex] AdvReac Headache Verified 06/13/17 15:14 indomethacin AdvReac Headache Verified 06/13/17 15:14 - Social History Does the pt smoke?: No Smoking Status: Never smoker Does the pt drink ETOH?: No Does the pt have substance abuse?: No - Immunizations Immunizations are current?: Yes PD ED PE NORMAL - Vitals Vital signs reviewed: Yes - General General: Alert and oriented X 3, Other (Slightly agitated and hypervigilance with dilated pupils.) - HEENT HEENT: Pharynx benign - Neck Neck: Supple, no meningeal sign, No bony TTP - Cardiac Cardiac: RRR, No murmur - Respiratory Respiratory: No respiratory distress, Clear bilaterally - Abdomen Abdomen: Normal bowel sounds, Soft, Non tender - Back Back: No CVA TTP, No spinal TTP - Neuro Neuro: Alert and oriented X 3, Normal speech - Psych Psych: Normal mood, Normal affect Results - Vitals Vitals: Vital Signs - 24 hr 06/13/17 06/13/17 15:07 17:30 Temperature 36.9 C Heart Rate 100 75 Respiratory 18 16 Rate Blood Pressure 137/82 H 138/86 H O2 Saturation 95 100 Oxygen O2 Source Room air - Labs Labs: Laboratory Tests 06/13/17 06/13/17 06/13/17 15:35 15:35 17:05 WBC 11.1 H RBC 5.15 Hgb 15.5 Hct 44.1 MCV 85.5 MCH 30.1 MCHC 35.2 RDW 12.6 Plt Count 274 MPV 8.5 Neut # 7.8 H Lymph # 2.7 [place] # 0.5 Eos # 0.0 Baso # 0.1 Absolute Nucleated RBC 0.01 Nucleated RBC % 0.0 Sodium 137 Potassium 2.9 L Chloride 103 Carbon Dioxide 23 Anion Gap 11.0 BUN 8 Creatinine 0.8 Estimated GFR (MDRD) 115 Glucose 88 Calcium 9.4 Total Bilirubin 0.7 AST 20 ALT 22 Alkaline Phosphatase 57 Total Protein 8.0 Albumin 4.9 Globulin 3.1 Albumin/Globulin Ratio 1.6 Lipase 20 L Urine Color YELLOW Urine Clarity CLEAR Urine pH 6.5 Ur Specific [place] 1.020 Urine Protein TRACE Urine Glucose (UA) NEGATIVE Urine Ketones 40 H Urine Occult Blood NEGATIVE Urine Nitrite NEGATIVE Urine Bilirubin MODERATE H Urine Urobilinogen 0.2 (NORMAL) Ur Leukocyte Esterase NEGATIVE Ur Microscopic Review NOT INDICATED Urine Culture Comments NOT INDICATED Urine Opiates Screen POSITIVE H Ur Oxycodone Screen NEGATIVE Urine Methadone Screen NEGATIVE Ur Propoxyphene Screen NEGATIVE Ur Barbiturates Screen NEGATIVE Ur Tricyclics Screen POSITIVE H Ur Phencyclidine Scrn NEGATIVE Ur Amphetamine Screen NEGATIVE U Methamphetamines Scrn NEGATIVE U Benzodiazepines Scrn POSITIVE H Urine Cocaine Screen NEGATIVE U Cannabinoids Screen NEGATIVE Procedures - General procedure General procedure: He was difficult for IV access, the nurse tried and failed. I personally placed a long 20-gauge IV in the right deep brachial vein using real-time ultrasound guidance after alcohol which we used to draw the labs and it flushed easily. PD MEDICAL DECISION MAKING - ED course ED course: 27-year-old gentleman with idiopathic and chronic pain of the lower abdomen and genitals after a retroperitoneal lymph node dissection presents with uncontrolled pain. He was administered IV fluids in small doses of narcotics with improvement in his symptoms and appearance. Potassium was repleted orally. Departure - Departure Disposition: 01 Home, Self Care Clinical Impression: Post-op pain, Opioid withdrawal Condition: Good Record reviewed to determine appropriate education?: Yes Instructions: ED Chronic Pain Management, ED Acute Pain [facility] Prescriptions: Oxycodone HCl 10 mg PO Q6H PRN #10 tablet PRN Reason: Pain Comments: Call your doctor to arrange a follow-up appointment, make the next available appointment. In the interim, return anytime if worse or if new symptoms develop. Your blood pressure was elevated today on check into the emergency department. This does not mean that you have hypertension, it is a common phenomenon to come to the emergency department and have elevated blood pressure. I recommend that you see your primary care physician within the week to have it rechecked when you are feeling better. The policy of this emergency department is to not give more than 3 prescriptions for narcotics or other controlled substances in any 1 year. You have already surpassed this benchmark and we cannot prescribe narcotics for you. I encourage you to follow up with your primary care physician or to establish care with a primary care physician for ongoing pain management. You are always welcome to seek emergency care here for this or new issues but there will likely be limitations in the prescription of narcotic pain medication.
[2017-06-13 16:25] LABS: BASOPHILS # (AUTO) 0.1 10^3/uL (0.0-0.1); BASOPHILS % (AUTO) 0.6 %; EOSINOPHILS % (AUTO) 0.2 %; HGB - HEMOGLOBIN 15.5 g/dL (14.0-18.0); LYMPHOCYTES # (AUTO) 2.7 10^3/uL (1.5-3.5); LYMPHOCYTES % (AUTO) 24.3 %; MEAN CORPUSCULAR HEMOGLOBIN 30.1 pg (27.0-31.0); MEAN CORPUSCULAR HGB CONC 35.2 g/dL (32.0-36.0); MEAN CORPUSCULAR VOLUME 85.5 fL (80.0-94.0); MEAN PLATELET VOLUME 8.5 fL (7.4-11.4); MONOCYTES # (AUTO) 0.5 10^3/uL (0.0-1.0); MONOCYTES % (AUTO) 4.7 %; NEUTROPHILS # (AUTO) 7.8 10^3/uL (1.5-6.6); NEUTROPHILS % (AUTO) 70.2 %; PLT - PLATELET COUNT 274 10^3/uL (130-450); RED BLOOD COUNT 5.15 10^6/uL (4.70-6.10); RED CELL DISTRIBUTION WIDTH 12.6 % (12.0-15.0); WHITE BLOOD COUNT 11.1 x10^3/uL (4.8-10.8)
[2017-06-13 16:37] LABS: ALBUMIN 4.9 g/dL (3.2-5.5); ALBUMIN/GLOBULIN RATIO 1.6 (1.0-2.2); BILIRUBIN,TOTAL 0.7 mg/dL (0.2-1.0); CALCIUM 9.4 mg/dL (8.5-10.3); CREATININE 0.8 mg/dL (0.6-1.2)
[2017-06-13] MEDS ORDERED: POTASSIUM BICARB 25 MEQ TABLET PO STA (17:04)
[2017-06-13 17:12] LABS: MUDS CUTOFF CONCENTRATIONS CUTOFF CONC BELOW:
[2017-06-13 17:15] LABS: GLUCOSE, URINE (UA) NEGATIVE (NEGATIVE); KETONES,URINE (UA) 40 mg/dL (NEGATIVE); LEUKOCYTE ESTERASE, URINE NEGATIVE (NEGATIVE); NITRITE,URINE NEGATIVE (NEGATIVE); OCCULT BLOOD,URINE NEGATIVE (NEGATIVE); PH,URINE 6.5 PH (5.0-7.5); PROTEIN,URINE TRACE mg/dL (NEGATIVE); UROBILINOGEN,URINE 0.2 (NORMAL) E.U./dL (NORMAL)
[2017-06-13] MEDS ORDERED: oxyCODONE 5 MG TABLET PO STA (17:19)
[2017-06-13 17:26] LABS: BILIRUBIN,URINE MODERATE (NEGATIVE); CLARITY,URINE CLEAR (CLEAR); ICTOTEST,URINE POSITIVE
[2017-06-13 17:32] VITALS: BP 138/86
[2017-06-13 17:34] LABS: AMPHETAMINE SCREEN,URINE NEGATIVE (NEGATIVE); BENZODIAZEPINES SCREEN, URINE POSITIVE (NEGATIVE); COCAINE SCREEN URINE NEGATIVE (NEGATIVE); METHADONE SCREEN, URINE NEGATIVE (NEGATIVE); METHAMPHETAMINES SCREEN, URINE NEGATIVE (NEGATIVE); OPIATE SCREEN, URINE POSITIVE (NEGATIVE); OXYCODONE SCREEN, URINE NEGATIVE (NEGATIVE); PROPOXYPHENE SCREEN, URINE NEGATIVE (NEGATIVE); TRICYCLIC ANTIDEPRESSANT,URINE POSITIVE (NEGATIVE)
== END 2017-06-13 17:45 | disposition home or self-care (01) ==
LOC: ED 15:04
DX: G89.18 Other acute postprocedural pain (principal); F11.23 Opioid dependence with withdrawal; T40.2X5A Adverse effect of other opioids, initial encounter; G89.29 Other chronic pain; R03.0 Elevated blood-pressure reading, without diagnosis of hypertension
CPT/HCPCS: 36415; 80053; 80306; 81003; 83690; 85025; 96361; 96374; 99283; A9270; 81001; 87086

== ENCOUNTER 2017-07-14 10:55 | Emergency (ER) | payer OTHER ==
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
[2017-07-14 13:14] VITALS: BP 138/96
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
== END 2017-07-14 13:58 | disposition home or self-care (01) ==
LOC: ED 10:55
DX: S40.011A Contusion of right shoulder, initial encounter (principal); V89.2XXA Person injured in unspecified motor-vehicle accident, traffic, initial encounter
CPT/HCPCS: 99283

== ENCOUNTER 2017-09-23 17:00 | Emergency (ER) | payer OTHER ==
--- NOTE | 2017-09-23 17:12 | ED Physician Documentation ---
PD HPI UPPER EXT INJURY - Stated complaint Stated Complaint: RT ARM PX/NO MOVEMENT - Chief complaint Chief Complaint: Ext Problem - History obtained from History obtained from: Patient - History of Present Illness Location: Right, Shoulder Type of injury: Twist (he was lifting a small jug (2 gallon) and felt pop and pain right shoulder. He has had pain there with limited use for weeks and Dx with possible rotator cuff injury. Has MRI of it scheduled for this Friday already. Had this worse pain today and feels weak/painful for any movement.) Timing - onset: Today (the worse pain, but has had some shoulder pain for weeks) Worsened by: Moving, Palpating Associated symptoms: Weakness (for lifting and rotating arm). No: Numbness, Swelling Recently seen: Clinic Review of Systems Constitutional: denies: Fever, Chills, Myalgias Skin: denies: Rash, Lesions Musculoskeletal: denies: Neck pain, Back pain Neurologic: denies: Numbness, Near syncope PD PAST MEDICAL HISTORY - Past Medical History Cardiovascular: None Respiratory: None : Other Psych: Post traumatic stress disorder - Past Surgical History Past Surgical History: Yes - Present Medications Home Medications: Ambulatory Orders Medication Instructions Recorded Confirmed Sertraline [Zoloft] 3 tab PO DAILY 01/09/17 07/14/17 Ibuprofen [Motrin] 400 mg PO Q6H PRN #30 tablet 07/14/17 Dexamethasone [Decadron] 4 mg PO DAILY #5 tablet 09/23/17 HYDROcod/ACETAM 5/325 [[place] 5/325] 1 tab PO Q6H PRN #15 tablet 09/23/17 Methocarbamol [Robaxin] 500 mg PO Q6H PRN #25 tablet 09/23/17 - Allergies Allergies/Adverse Reactions: Allergies Allergy/AdvReac Type Severity Reaction Status Date / Time levofloxacin [From Levaquin] Allergy Unknown Verified 09/23/17 17:16 celecoxib [From Celebrex] AdvReac Headache Verified 09/23/17 17:16 indomethacin AdvReac Headache Verified 09/23/17 17:16 - Social History Does the pt smoke?: No Smoking Status: Never smoker Does the pt drink ETOH?: No Does the pt have substance abuse?: No - Immunizations Immunizations are current?: Yes PD ED PE NORMAL - Vitals Vital signs reviewed: Yes - General General: Alert and oriented X 3, Well developed/nourished, Other (appears uncomfortable. Right arm in sling coming to ED. ) - Neck Neck: Supple, no meningeal sign, No bony TTP, No adenopathy - Derm Derm: Normal color, Warm and dry, No rash - Extremities Extremities: Other (right shoulder tender around the joint. Not tender at clavicle nor AC area. Pain with any ROM so limited exam. No gross laxity of the shoulder in joint. ) - Neuro Neuro: Alert and oriented X 3, No motor deficit, No sensory deficit, Normal speech Results - Vitals Vitals: Vital Signs - 24 hr 09/23/17 09/23/17 17:05 18:08 Temperature 36.7 C 36.5 C Heart Rate 76 62 Respiratory 18 16 Rate Blood Pressure 157/111 H 132/84 H O2 Saturation 99 98 Oxygen O2 Source Room air PD MEDICAL DECISION MAKING - ED course Complexity details: considered differential (has had pain of shoulder and then pop today and really hurts for movement. No numbness in hand. No weakness of wrist/fingers. Sounds likely he had partial rotator cuff tear that completed. Has MRI scheduled for this weekend. Continue current treatment. ), d/w patient - Sepsis Event Vital Signs: Vital Signs - 24 hr 09/23/17 09/23/17 17:05 18:08 Temperature 36.7 C 36.5 C Heart Rate 76 62 Respiratory 18 16 Rate Blood Pressure 157/111 H 132/84 H O2 Saturation 99 98 Oxygen O2 Source Room air Departure - Departure Disposition: 01 Home, Self Care Clinical Impression: Injury of right rotator cuff Qualifiers: Encounter type: subsequent encounter Qualified Code(s): S46.001D - Unspecified injury of muscle(s) and tendon(s) of the rotator cuff of right shoulder, subsequent encounter Condition: Stable Record reviewed to determine appropriate education?: Yes Instructions: ED Torn Rotator Cuff Follow-Up: Zain Kim MD [Primary Care Provider] - [facility] [Provider Group] Prescriptions: Dexamethasone [Decadron] 4 mg PO DAILY #5 tablet HYDROcod/ACETAM 5/325 [[place] 5/325] 1 tab PO Q6H PRN #15 tablet PRN Reason: Pain Methocarbamol [Robaxin] 500 mg PO Q6H PRN #25 tablet PRN Reason: Spasms Comments: Use of the sling is okay as long as you have gentle passive range of motion of the shoulder for a few minutes at a time at least several times a day so any torn fibers do not heal in the wrong position. Continue your current medications. Add Decadron also an anti-inflammatory daily for 5 more days. Use Robaxin if needed for spasms as the shoulder injuries will often have symptoms stiffness or spasms to that. Add Tylenol or hydrocodone if needed for pain. Have the MRI on Friday as planned. Call the orthopedic office tomorrow for an appointment for next week on follow- up of this. Discharge Date/Time: 09/23/17 18:08
[2017-09-23] MEDS ORDERED: HYDROcod/ACETAM 5/325 MG TABLET PO STA (17:33)
[2017-09-23] MEDS ORDERED: DEXAMETHASONE 10 MG/ML VIAL PO STA (17:33)
[2017-09-23] MEDS ORDERED: METHOCARBAMOL 500 MG TABLET PO STA (17:33)
[2017-09-23 18:10] VITALS: BP 132/84
== END 2017-09-23 18:08 | disposition home or self-care (01) ==
LOC: ED 17:00
DX: S46.001A Unspecified injury of muscle(s) and tendon(s) of the rotator cuff of right shoulder, initial encounter (principal); X50.9XXA Other and unspecified overexertion or strenuous movements or postures, initial encounter
CPT/HCPCS: 99283; A9270

== ENCOUNTER 2017-09-27 16:26 | Outpatient (CLI) | payer OTHER ==
--- NOTE | 2017-09-28 16:46 | MRI Report ---
Procedure Date: 09/27/2017 Accession Number: [id number] / [id number] Procedure: MRI - Shoulder RT W/O CPT Code: FULL RESULT: EXAM: RIGHT SHOULDER MRI WITHOUT CONTRAST EXAM DATE: 09/27/2017 05:07 PM. CLINICAL HISTORY: Failure of shoulder pain to progress under care. COMPARISON: None. TECHNIQUE: Multiplanar, multisequence T1-weighted and fluid-sensitive sequences of the shoulder without contrast. Other: None. FINDINGS: Acromioclavicular Region: The acromion is Type II unipartite. AC joint is unremarkable. The coracoacromial and coracoclavicular ligaments are intact. No subacromial/subdeltoid bursal fluid. Glenohumeral Region: No subluxation. No effusion or loose bodies. The articular cartilage is unremarkable. The glenohumeral ligaments and joint capsule are unremarkable. Bone Marrow: No fracture, marrow edema or bone lesions. Labrum: The labrum is unremarkable on this nonarthrographic study. Musculature/Rotator Cuff: Distal supraspinatus tendon is thickened and shows some mild increased T2 signal. Subscapularis, infraspinatus and teres minor have a normal appearance. No proximal edema or fatty atrophy. Biceps Tendon: The long head of the biceps tendon and biceps christel are intact. Other: The subcutaneous tissues are unremarkable. IMPRESSION: 1. Type II unipartite undersurface osseous acromion shape. AC joint is unremarkable. 2. Labrum, capsular structures and long head of biceps appear unremarkable. 2. Mild distal supraspinatus tendinopathy. No tears. Remainder of the rotator cuff appears unremarkable. [facility] MUSCULOSKELET[facility]IOLOGY SECTION
== END 2017-09-27 16:27 | disposition home or self-care (01) ==
LOC: DI 16:26
PROVIDERS: ATTEND Chiropractor
DX: M75.91 Shoulder lesion, unspecified, right shoulder (principal)

== ENCOUNTER 2017-11-27 19:14 | Emergency (ER) | payer SELFPAY ==
[2017-11-27 20:55] LABS: BASOPHILS % (AUTO) 0.4 %; EOSINOPHILS # (AUTO) 0.1 10^3/uL (0.0-0.7); EOSINOPHILS % (AUTO) 1.1 %; HGB - HEMOGLOBIN 15.1 g/dL (14.0-18.0); LYMPHOCYTES # (AUTO) 2.3 10^3/uL (1.5-3.5); LYMPHOCYTES % (AUTO) 27.5 %; MEAN CORPUSCULAR HEMOGLOBIN 30.2 pg (27.0-31.0); MEAN CORPUSCULAR HGB CONC 35.1 g/dL (32.0-36.0); MEAN CORPUSCULAR VOLUME 86.2 fL (80.0-94.0); MEAN PLATELET VOLUME 8.4 fL (7.4-11.4); MONOCYTES # (AUTO) 0.4 10^3/uL (0.0-1.0); MONOCYTES % (AUTO) 5.2 %; NEUTROPHILS # (AUTO) 5.6 10^3/uL (1.5-6.6); NEUTROPHILS % (AUTO) 65.8 %; PLT - PLATELET COUNT 250 10^3/uL (130-450); WHITE BLOOD COUNT 8.5 x10^3/uL (4.8-10.8)
[2017-11-27 21:06] LABS: ALBUMIN 4.7 g/dL (3.2-5.5); ALBUMIN/GLOBULIN RATIO 1.4 (1.0-2.2); BILIRUBIN,TOTAL 0.5 mg/dL (0.2-1.0); CALCIUM 9.6 mg/dL (8.5-10.3); CREATININE 0.8 mg/dL (0.6-1.2)
[2017-11-27] MEDS ORDERED: HYDROcod/ACETAM 5/325 MG TABLET PO STA (21:50)
[2017-11-27] MEDS ORDERED: ONDANSETRON ODT 4 MG TABLET TL STA (21:51)
[2017-11-27] MEDS ORDERED: PHENobarb/HYOSCY/ATROPINE/SCOP 5 ML UDC PO STA (21:51)
[2017-11-27] MEDS ORDERED: LIDOCAINE VISCOUS 2% 15 ML UDC MM STA (21:51)
[2017-11-27] MEDS ORDERED: MAG HYDROX/AL HYDROX/SIMETH 30 ML UDC PO STA (21:51)
--- NOTE | 2017-11-27 21:52 | ED Physician Documentation ---
PD HPI ABD PAIN - Stated complaint Stated Complaint: SOA/ABD PRESSURE - Chief complaint Chief Complaint: Abd Pain - History obtained from History obtained from: Patient - History of Present Illness Timing - onset: How many weeks ago (1) Timing - details: Gradual onset, Waxing and waning Pain level max: 10 Pain level now: 8 Quality: Pain Location: Epigastric Radiation: Lower back Improved by: Other (no ameliorating factors) Worsened by: Eating Associated symptoms: Nausea, Vomiting. No: Fever, Diarrhea, Constipation, Dysuria - Additional information Additional information: c/o "pressure" "my upper abdomen", points to epigastrium. "Feels like I'm getting stabbed", worsening x 1 week, although similar milder symptoms x 1 month (as well as many other symptoms such as "greasy, floating stools", nausea and intermittent vomiting, fatigue). Did not contact PMD, and called his oncologist earlier today and left a message asking advice. This is his [facility]th [facility] ED visit in 12 months. Also has visits to ED recently ( August) Review of Systems Constitutional: reports: Fatigue. denies: Fever, Chills, Sweats Eyes: reports: Reviewed and negative Ears: reports: Reviewed and negative Nose: reports: Reviewed and negative Cardiac: reports: Reviewed and negative Respiratory: reports: Reviewed and negative GI: reports: Nausea, Vomiting. denies: Abdominal Pain, Constipation, Diarrhea : denies: Dysuria, Frequency Skin: denies: Rash Neurologic: reports: Generalized weakness. denies: Focal weakness, Numbness, Headache Endocrine: reports: Easy bruising / bleeding PD PAST MEDICAL HISTORY - Past Medical History Cardiovascular: None Respiratory: None : Other Psych: Post traumatic stress disorder - Past Surgical History Past Surgical History: Yes - Present Medications Home Medications: Ambulatory Orders Medication Instructions Recorded Confirmed Sertraline [Zoloft] 3 tab PO DAILY 01/09/17 07/14/17 Ibuprofen [Motrin] 400 mg PO Q6H PRN #30 tablet 07/14/17 HYDROcod/ACETAM 5/325 [[place] 5/325] 1 - 2 ea PO Q6H PRN #15 tablet 11/27/17 - Allergies Allergies/Adverse Reactions: Allergies Allergy/AdvReac Type Severity Reaction Status Date / Time levofloxacin [From Levaquin] Allergy Unknown Verified 11/27/17 19:23 celecoxib [From Celebrex] AdvReac Headache Verified 11/27/17 19:23 indomethacin AdvReac Headache Verified 11/27/17 19:23 - Social History Does the pt smoke?: No Smoking Status: Never smoker Does the pt drink ETOH?: No Does the pt have substance abuse?: No - Immunizations Immunizations are current?: Yes PD ED PE NORMAL - Vitals Vital signs reviewed: Yes - General General: Alert and oriented X 3, No acute distress, Well developed/nourished - HEENT HEENT: Moist mucous membranes - Neck Neck: Supple, no meningeal sign - Cardiac Cardiac: RRR, No murmur - Respiratory Respiratory: No respiratory distress, Clear bilaterally - Abdomen Abdomen: Soft, Non distended, Other (mild RUQ and epigastric tenderness without rebound or guarding) - Back Back: No CVA TTP - Derm Derm: Normal color, Warm and dry - Extremities Extremities: No edema Results - Vitals Vitals: Vital Signs - 24 hr 11/27/17 11/27/17 11/27/17 19:17 21:21 23:42 Temperature 36.6 C 36.5 C Heart Rate 118 H 70 70 Respiratory 24 17 16 Rate Blood Pressure 135/96 H 127/93 H 126/88 H O2 Saturation 100 98 98 Oxygen O2 Source Room air - EKG (time done) No standard instances Rate: Rate (enter#) (93) Rhythm: NSR [place]: Normal Intervals: Normal NC QRS: Normal Ischemia: Normal ST segments Other comments: Other comments (RSR' V1, V2) - Labs Labs: Laboratory Tests 11/27/17 11/27/17 20:49 20:49 WBC 8.5 RBC 5.00 Hgb 15.1 Hct 43.1 MCV 86.2 MCH 30.2 MCHC 35.1 RDW 13.0 Plt Count 250 MPV 8.4 Neut # (Auto) 5.6 Lymph # (Auto) 2.3 [place] # (Auto) 0.4 Eos # (Auto) 0.1 Baso # (Auto) 0.0 Absolute Nucleated RBC 0.00 Nucleated RBC % 0.0 Sodium 140 Potassium 3.3 L Chloride 106 Carbon Dioxide 23 Anion Gap 11.0 BUN 9 Creatinine 0.8 Estimated GFR (MDRD) 115 Glucose 96 Calcium 9.6 Total Bilirubin 0.5 AST 16 ALT 15 Alkaline Phosphatase 56 Total Protein 8.0 Albumin 4.7 Globulin 3.3 Albumin/Globulin Ratio 1.4 Lipase 50 - Rads (name of study) RUQ US Radiology: Prelim report reviewed, See rad report PD MEDICAL DECISION MAKING - ED course Complexity details: reviewed old records, reviewed results, re-evaluated patient , considered differential, d/w patient - Sepsis Event Vital Signs: Vital Signs - 24 hr 11/27/17 11/27/17 11/27/17 19:17 21:21 23:42 Temperature 36.6 C 36.5 C Heart Rate 118 H 70 70 Respiratory 24 17 16 Rate Blood Pressure 135/96 H 127/93 H 126/88 H O2 Saturation 100 98 98 Oxygen O2 Source Room air Departure - Departure Disposition: 01 Home, Self Care Clinical Impression: Abdominal pain, Hypokalemia Condition: Good Instructions: ED Potassium Deficiency, ED Abdominal Pain Unkn Cause Male Follow-Up: Zain Kim MD [Primary Care Provider] - (Call in the morning to arrange for next available appointment) Prescriptions: HYDROcod/ACETAM 5/325 [[place] 5/325] 1 - 2 ea PO Q6H PRN #15 tablet PRN Reason: Pain Discharge Date/Time: 11/27/17 23:42
--- NOTE | 2017-11-27 22:47 | Ultrasound Report ---
Reason: epigastric pain Procedure Date: 11/27/2017 Accession Number: [id number] / [id number] Procedure: US - Abdomen Limited CPT Code: FULL RESULT: EXAM: ABDOMEN ULTRASOUND LIMITED, RUQ EXAM DATE: 11/27/2017 10:16 PM. CLINICAL HISTORY: Epigastric pain. COMPARISON: None. TECHNIQUE: Real-time scanning was performed with static images obtained. FINDINGS: Liver: Normal in size and echotexture. 15.5 cm. Main portal vein flow: Hepatopetal. Gallbladder: Normal. No stones, wall thickening, or sonographic Hendrix's sign. Biliary System: CBD measures 3 mm. No intrahepatic or extrahepatic ductal dilatation. Other: No right hydronephrosis. The visual pancreas is unremarkable. IMPRESSION: Normal. No cholelithiasis or cholecystitis. [facility]
[2017-11-27 23:43] VITALS: BP 126/88
== END 2017-11-27 23:42 | disposition home or self-care (01) ==
LOC: ED 19:14
DX: R10.13 Epigastric pain (principal); R10.11 Right upper quadrant pain; E87.6 Hypokalemia
CPT/HCPCS: 36415; 76705; 80053; 83690; 85025; 93005; 99283; A9270; Q0162

== ENCOUNTER 2018-09-11 16:40 | Emergency (ER) | payer SELFPAY ==
[2018-09-11 19:42] LABS: BASOPHILS % (AUTO) 0.3 %; EOSINOPHILS # (AUTO) 0.1 10^3/uL (0.0-0.7); EOSINOPHILS % (AUTO) 0.9 %; HGB - HEMOGLOBIN 15.1 g/dL (14.0-18.0); LYMPHOCYTES % (AUTO) 24.2 %; MEAN CORPUSCULAR HEMOGLOBIN 29.3 pg (27.0-31.0); MEAN CORPUSCULAR VOLUME 86.3 fL (80.0-94.0); MEAN PLATELET VOLUME 8.2 fL (7.4-11.4); MONOCYTES # (AUTO) 0.3 10^3/uL (0.0-1.0); MONOCYTES % (AUTO) 3.5 %; NEUTROPHILS # (AUTO) 5.9 10^3/uL (1.5-6.6); NEUTROPHILS % (AUTO) 71.1 %; PLT - PLATELET COUNT 296 10^3/uL (130-450); RED BLOOD COUNT 5.15 10^6/uL (4.70-6.10); RED CELL DISTRIBUTION WIDTH 13.6 % (12.0-15.0); WHITE BLOOD COUNT 8.2 x10^3/uL (4.8-10.8)
[2018-09-11 20:00] LABS: ACETAMINOPHEN < 10 ug/mL (10-30); ALBUMIN 5.1 g/dL (3.2-5.5); ALBUMIN/GLOBULIN RATIO 1.5 (1.0-2.2); ALKALINE PHOSPHATASE 55 IU/L (42-121); ALT ALANINE AMINOTRANSFERASE 36 IU/L (10-60); AST ASPARTATE AMINOTRANSFERASE 27 IU/L (10-42); BILIRUBIN,TOTAL 0.6 mg/dL (0.2-1.0); BUN - BLOOD UREA NITROGEN 10 mg/dL (6-20); CALCIUM 9.8 mg/dL (8.5-10.3); CARBON DIOXIDE - CO2 24 mmol/L (21-32); CHLORIDE 101 mmol/L (101-111); CREATININE 0.8 mg/dL (0.6-1.2); GFR - MDRD 114 (>89); GLUCOSE 92 mg/dL (70-100); LIPASE 39 U/L (22-51); SALICYLATE < 6.0 mg/dL; SODIUM 138 mmol/L (135-145); TOTAL PROTEIN 8.6 g/dL (6.7-8.2)
[2018-09-11] MEDS ORDERED: LORazepam 0.5 MG TABLET PO STA (20:29)
[2018-09-11] MEDS ORDERED: oxyCODONE 5 MG TABLET PO STA (20:29)
[2018-09-11 20:32] VITALS: BP 132/84
--- NOTE | 2018-09-11 20:36 | ED Physician Documentation ---
History of Present Illness - Stated complaint Stated Complaint: ANXIETY - Chief complaint Chief Complaint: General - History obtained from History obtained from: Patient, Family - History of Present Illness Timing: Today Pain level max: 8 Pain level now: 6 - Additonal information Additional information: 28-year-old male presents to the emergency department with worsening anxiety recently. Has a history of PTSD and is not currently seeing a counselor. Denies being homicidal or suicidal. He also states that he is having increasing back pain. Has a history of testicular cancer with lymph node dissection. 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 No loss of bowel or bladder control. No fever. No IV drug use. Nothing makes it better or worse Review of Systems Constitutional: denies: Fever, Chills Throat: denies: Sore throat Cardiac: denies: Chest pain / pressure Respiratory: denies: Cough GI: denies: Vomiting, Diarrhea : denies: Dysuria, Frequency, Hesitancy Skin: denies: Rash Musculoskeletal: denies: Neck pain, Back pain Neurologic: denies: Headache PD PAST MEDICAL HISTORY - Past Medical History Past Medical History: Yes Cardiovascular: None Respiratory: None : Other Psych: Post traumatic stress disorder - Past Surgical History Past Surgical History: Yes - Present Medications Home Medications: Ambulatory Orders Medication Instructions Recorded Confirmed Sertraline [Zoloft] 3 tab PO DAILY 01/09/17 07/14/17 Ibuprofen [Motrin] 400 mg PO Q6H PRN #30 tablet 07/14/17 HYDROcod/ACETAM 5/325 [[place] 5/325] 1 - 2 ea PO Q6H PRN #15 tablet 11/27/17 LORazepam [Ativan] 0.5 mg PO Q6H PRN #7 tablet 09/11/18 oxyCODONE [Roxicodone] 5 mg PO Q6H PRN #7 tablet 09/11/18 - Allergies Allergies/Adverse Reactions: Allergies Allergy/AdvReac Type Severity Reaction Status Date / Time levofloxacin [From Levaquin] Allergy Unknown Verified 11/27/17 19:23 celecoxib [From Celebrex] AdvReac Headache Verified 11/27/17 19:23 indomethacin AdvReac Headache Verified 11/27/17 19:23 - Social History Does the pt smoke?: Yes Smoking Status: Current every day smoker Does the pt drink ETOH?: No Does the pt have substance abuse?: No Substance Use and Type: Marijuana - Immunizations Immunizations are current?: Yes - POLST Patient has POLST: No PD ED PE NORMAL - Vitals Vital signs reviewed: Yes - General General: Alert and oriented X 3, No acute distress, Well developed/nourished - HEENT HEENT: PERRL, Moist mucous membranes - Neck Neck: Supple, no meningeal sign - Cardiac Cardiac: RRR, Strong equal pulses - Respiratory Respiratory: No respiratory distress, Clear bilaterally - Abdomen Abdomen: Soft, Non tender, Non distended - Back Back: No spinal TTP - Derm Derm: Warm and dry, No rash - Extremities Extremities: No edema, No calf tenderness / cord - Neuro Neuro: Alert and oriented X 3, No motor deficit, No sensory deficit, Other (Normal bilateral lower extremity patellar and ankle jerk reflexes. Normal great toe extension bilaterally. no saddle anesthesia) - Psych Psych: Normal mood, Normal affect Results - Vitals Vitals: Vital Signs - 24 hr 09/11/18 09/11/18 17:07 20:31 Temperature 36.7 C 36.6 C Heart Rate 66 55 L Respiratory 20 12 Rate Blood Pressure 142/99 H 132/84 H O2 Saturation 99 97 Oxygen O2 Source Room air - Labs Labs: Laboratory Tests 09/11/18 09/11/18 09/11/18 19:13 19:13 19:13 WBC 8.2 RBC 5.15 Hgb 15.1 Hct 44.4 MCV 86.3 MCH 29.3 MCHC 34.0 RDW 13.6 Plt Count 296 MPV 8.2 Neut # (Auto) 5.9 Lymph # (Auto) 2.0 [place] # (Auto) 0.3 Eos # (Auto) 0.1 Baso # (Auto) 0.0 Absolute Nucleated RBC 0.00 Nucleated RBC % 0.0 Sodium 138 Potassium 3.3 L Chloride 101 Carbon Dioxide 24 Anion Gap 13.0 BUN 10 Creatinine 0.8 Estimated GFR (MDRD) 114 Glucose 92 Calcium 9.8 Total Bilirubin 0.6 AST 27 ALT 36 Alkaline Phosphatase 55 Total Protein 8.6 H Albumin 5.1 Globulin 3.5 Albumin/Globulin Ratio 1.5 Lipase 39 TSH 1.10 Salicylates < 6.0 Acetaminophen < 10 L Ethyl Alcohol < 5.0 PD MEDICAL DECISION MAKING - ED course Complexity details: reviewed results, re-evaluated patient, considered differential, d/w patient, d/w family ED course: Patient is not homicidal or suicidal. Will place on a small amount of Ativan. Recommend that he follow-up with a counselor. We will also prescribe a small amount of pain medication for his back. No evidence of cauda equina or epidural abscess. Patient counseled regarding signs and symptoms for which I believe and urgent re-evaluation would be necessary. Patient with good understanding of and agreement to plan and is comfortable going home at this time This document was made in part using voice recognition software. While efforts are made to proofread this document, sound alike and grammatical errors may occur. Departure - Departure Disposition: Home, Self Care Clinical Impression: Anxiety Back pain Qualifiers: Back pain location: low back pain Chronicity: chronic Back pain laterality: midline Sciatica presence: without sciatica Qualified Code(s): M54.5 - Low back pain Condition: Good Instructions: ED Panic Attack Follow-Up: your,doctor in 1 week [Other] Prescriptions: LORazepam [Ativan] 0.5 mg PO Q6H PRN #7 tablet PRN Reason: Anxiety oxyCODONE [Roxicodone] 5 mg PO Q6H PRN #7 tablet PRN Reason: back pain Comments: Return if you worsen. Follow-up with your doctor for further evaluation and care. You should see a counselor about your PTSD as well Do not drink alcohol or drive while on narcotic pain medicine. Note that many narcotic pain relievers also contain tylenol/acetaminophen. Please ensure that your total dose of acetaminophen from all sources does not exceed 3 grams (3000mg) per day. You may constipated on this medication, take a stool softener such as "Colace" twice a day while you are on it. Also recommend a [id number] laxative such as senna or MiraLAX any day that you do not have a bowel movement. If you received narcotic pain medication in the emergency department, do not drive or operate machinery for the next 24 hours. Discharge Date/Time: 09/11/18 20:44
== END 2018-09-11 20:44 | disposition home or self-care (01) ==
LOC: ED 16:40
DX: F41.9 Anxiety disorder, unspecified (principal); M54.5 Low back pain; F43.10 Post-traumatic stress disorder, unspecified; F17.200 Nicotine dependence, unspecified, uncomplicated; Z85.47 Personal history of malignant neoplasm of testis
CPT/HCPCS: 36415; 80320; 80329; 83690; 99283; A9270; 80053; 80307; 84443; 85025

== ENCOUNTER 2020-05-09 17:43 | Emergency (ER) | payer OTHER ==
[2020-05-09 18:29] LABS: BASOPHILS % (AUTO) 0.4 %; EOSINOPHILS % (AUTO) 0.6 %; HCT - HEMATOCRIT 49.2 % (42.0-52.0); LYMPHOCYTES # (AUTO) 2.1 10^3/uL (1.5-3.5); LYMPHOCYTES % (AUTO) 28.8 %; MEAN CORPUSCULAR HGB CONC 34.6 g/dL (32.0-36.0); MEAN CORPUSCULAR VOLUME 86.9 fL (80.0-94.0); MONOCYTES # (AUTO) 0.3 10^3/uL (0.0-1.0); MONOCYTES % (AUTO) 4.8 %; NEUTROPHILS # (AUTO) 4.7 10^3/uL (1.5-6.6); NEUTROPHILS % (AUTO) 65.3 %; PLT - PLATELET COUNT 343 10^3/uL (130-450); RED BLOOD COUNT 5.66 10^6/uL (4.70-6.10); RED CELL DISTRIBUTION WIDTH 12.1 % (12.0-15.0); WHITE BLOOD COUNT 7.1 x10^3/uL (4.8-10.8)
[2020-05-09 18:30] LABS: BILIRUBIN,URINE NEGATIVE (NEGATIVE); GLUCOSE, URINE (UA) NEGATIVE (NEGATIVE); KETONES,URINE (UA) 15 mg/dL (NEGATIVE); LEUKOCYTE ESTERASE, URINE NEGATIVE (NEGATIVE); NITRITE,URINE NEGATIVE (NEGATIVE); OCCULT BLOOD,URINE NEGATIVE (NEGATIVE); PROTEIN,URINE TRACE mg/dL (NEGATIVE); UROBILINOGEN,URINE 0.2 (NORMAL) E.U./dL (NORMAL)
[2020-05-09 18:31] LABS: CLARITY,URINE CLEAR (CLEAR)
[2020-05-09 18:43] LABS: ALBUMIN 5.8 g/dL (3.2-5.5); ALBUMIN/GLOBULIN RATIO 1.5 (1.0-2.2); BILIRUBIN,TOTAL 1.1 mg/dL (0.2-1.0); CALCIUM 10.3 mg/dL (8.5-10.3); CREATININE 0.9 mg/dL (0.6-1.2); POTASSIUM 3.6 mmol/L (3.5-5.0); TOTAL PROTEIN 9.6 g/dL (6.7-8.2)
[2020-05-09] MEDS ORDERED: SODIUM CHLORIDE 0.9% 1,000 ML IV STA (19:03)
[2020-05-09] MEDS ORDERED: HYDROmorphone 1 MG/ML CARPUJECT IVP STA (19:03)
[2020-05-09] MEDS ORDERED: SULFAMETH/TRIMETH DS 800/160 MG TABLET PO STA (19:05)
--- NOTE | 2020-05-09 19:07 | ED Physician Documentation ---
History of Present Illness - Stated complaint Stated Complaint: MALE - Chief complaint Chief Complaint: Abd Pain - History obtained from History obtained from: Patient - History of Present Illness Timing: How many days ago (several) Pain level max: 8 Pain level now: 8 - Additonal information Additional information: Patient is a 30-year-old male who presents to the emergency department with testicular and perineal pain. Is been ongoing for the past several days. Worse with sitting, walking or trying to have a bowel movement. He also states he has noted some discoloration to his semen. Has a history of testicular cancer, right testicle removed. Also has an enlarged prostate, unclear etiology. Foll owed by urology at the [facility] for this. No fevers. No chills. He states that his says that he did wake up sweaty the other night. Patient states he has discomfort with urination as well. No changes in sexual partners. No STD exposure. Review of Systems Constitutional: denies: Fever, Chills Respiratory: denies: Cough GI: denies: Vomiting, Diarrhea Skin: denies: Rash Musculoskeletal: denies: Neck pain, Back pain Neurologic: denies: Headache PD PAST MEDICAL HISTORY - Past Medical History Past Medical History: Yes Cardiovascular: None Respiratory: None Neuro: Peripheral neuropathy Endocrine/Autoimmune: None GI: None : Benign prostate hypertrophy, Other HEENT: None Psych: Post traumatic stress disorder Musculoskeletal: Other Derm: None Other Past Medical History: testicular cancer,with lymph node resection - Past Surgical History Past Surgical History: Yes General: Other - Present Medications Home Medications: Ambulatory Orders Medication Instructions Recorded Confirmed Sertraline [Zoloft] 100 mg PO DAILY 01/09/17 05/09/20 Ibuprofen [Motrin] 400 mg PO Q6H PRN #30 tablet 07/14/17 05/09/20 Oxycodone HCl/Acetaminophen 1 - 2 each PO Q6H PRN #20 tab 05/09/20 [Percocet 5-325 mg Tablet] Sulfamethox/Trimeth 800/160 1 each PO BID #84 tab 05/09/20 [Bactrim Ds 800/160] - Allergies Allergies/Adverse Reactions: Allergies Allergy/AdvReac Type Severity Reaction Status Date / Time ketorolac [From Toradol] Allergy Rash Verified 05/09/20 17:58 levofloxacin [From Levaquin] Allergy Unknown Verified 05/09/20 17:58 celecoxib [From Celebrex] AdvReac Headache Verified 05/09/20 17:58 indomethacin AdvReac Headache Verified 05/09/20 17:58 - Social History Does the pt smoke?: No Smoking Status: Current some day smoker Does the pt drink ETOH?: No Does the pt have substance abuse?: Yes Substance Use and Type: CBD oil / Products - Immunizations Immunizations are current?: Yes - POLST Patient has POLST: No PD ED PE NORMAL - Vitals Vital signs reviewed: Yes - General General: Alert and oriented X 3, No acute distress - HEENT HEENT: Moist mucous membranes - Neck Neck: Supple, no meningeal sign - Cardiac Cardiac: RRR - Respiratory Respiratory: No respiratory distress, Clear bilaterally - Abdomen Abdomen: Soft, Non tender, Non distended - Male Male : Other (Right testicle is a prosthetic. Left testicle is mildly tender, no swelling. No mass.) - Rectal Rectal: Other (unable to tolerate rectal exam, TTP over the prostate) - Back Back: No CVA TTP, No spinal TTP - Derm Derm: Warm and dry - Extremities Extremities: No edema - Neuro Neuro: Alert and oriented X 3 Results - Vitals Vitals: Vital Signs - 24 hr 05/09/20 05/09/20 05/09/20 17:58 18:33 20:04 Temperature 37.1 C Heart Rate 75 65 55 L Respiratory 18 20 20 Rate Blood Pressure 135/93 H 135/89 H 126/77 O2 Saturation 98 99 98 05/09/20 21:08 Temperature 36.4 C L Heart Rate 69 Respiratory 14 Rate Blood Pressure 126/77 O2 Saturation 98 Oxygen O2 Source Room air - Labs Labs: Laboratory Tests 05/09/20 05/09/20 05/09/20 18:15 18:15 18:15 WBC 7.1 RBC 5.66 Hgb 17.0 Hct 49.2 MCV 86.9 MCH 30.0 MCHC 34.6 RDW 12.1 Plt Count 343 MPV 10.0 Neut # (Auto) 4.7 Lymph # (Auto) 2.1 [place] # (Auto) 0.3 Eos # (Auto) 0.0 Baso # (Auto) 0.0 Absolute Nucleated RBC 0.00 Nucleated RBC % 0.0 Sodium 137 Potassium 3.6 Chloride 98 L Carbon Dioxide 25 Anion Gap 14.0 H BUN 9 Creatinine 0.9 Estimated GFR (MDRD) 98 Glucose 100 Calcium 10.3 Total Bilirubin 1.1 H AST 26 ALT 20 Alkaline Phosphatase 57 Total Protein 9.6 H Albumin 5.8 H Globulin 3.8 Albumin/Globulin Ratio 1.5 Lipase 34 Urine Color YELLOW Urine Clarity CLEAR Urine pH 6.0 Ur Specific [place] 1.025 Urine Protein TRACE Urine Glucose (UA) NEGATIVE Urine Ketones 15 H Urine Occult Blood NEGATIVE Urine Nitrite NEGATIVE Urine Bilirubin NEGATIVE Urine Urobilinogen 0.2 (NORMAL) Ur Leukocyte Esterase NEGATIVE Ur Microscopic Review NOT INDICATED Urine Culture Comments NOT INDICATED - Rads (name of study) Testicle US Radiology: Prelim report reviewed, EMP read contemporaneously, See rad report PD MEDICAL DECISION MAKING - ED course Complexity details: reviewed results, re-evaluated patient, considered differential, d/w patient ED course: 30-year-old male presents to the emergency department what appears to be prostatitis does have a history of an abnormal prostate. Will place on Bactrim. Patient is well-appearing, nontoxic. Afebrile. Possible mild left-sided epididymitis on ultrasound. This should be covered by the Bactrim as well. Patient counseled regarding signs and symptoms for which I believe and urgent re-evaluation would be necessary. Patient with good understanding of and agreement to plan and is comfortable going home at this time This document was made in part using voice recognition software. While efforts are made to proofread this document, sound alike and grammatical errors may occur. 1. Normal-appearing left testicle. No evidence of left testicular torsion or discrete testicular lesion. 2. Suggestion of mild left-sided epididymitis. Small amount of left-sided hydrocele. Tiny left epididymal head cyst. 3. Prior right orchiectomy. Departure - Departure Disposition: Home, Self Care Clinical Impression: Prostatitis Qualifiers: Prostatitis type: acute Qualified Code(s): N41.0 - Acute prostatitis Condition: Good Instructions: ED Prostatitis Follow-Up: CHAPAROR VAZQUEZ DO [Primary Care Provider] - Within 1 week Prescriptions: Sulfamethox/Trimeth 800/160 [Bactrim Ds 800/160] 1 each PO BID #84 tab Oxycodone HCl/Acetaminophen [Percocet 5-325 mg Tablet] 1 - 2 each PO Q6H PRN #20 tab PRN Reason: pain Comments: Take all antibiotics until gone. Return if you worsen. You appear to have prostatitis tonight. Do not drink alcohol or drive while on narcotic pain medicine. Note that many narcotic pain relievers also contain tylenol/acetaminophen. Please ensure that your total dose of acetaminophen from all sources does not exceed 3 grams (3000mg) per day. You may constipated on this medication, take a stool softener such as "Colace" twice a day while you are on it. Also recommend a [id number] laxative such as senna or MiraLAX any day that you do not have a bowel movement. If you received narcotic pain medication in the emergency department, do not drive or operate machinery for the next 24 hours. Discharge Date/Time: 05/09/20 21:08
[2020-05-09 20:50] VITALS: BP 126/77
[2020-05-09] MEDS ORDERED: oxyCODONE/ACET 5/325 Prepack 4 PO STA (20:59)
--- NOTE | 2020-05-09 21:24 | Ultrasound Report ---
PROCEDURE: Testicle w/Doppler INDICATIONS: L testicular pain TECHNIQUE: Real-time scanning was performed of the scrotum and testicles, with image documentation. Color and p ulse Doppler interrogation was performed of both testicles. COMPARISON: None. FINDINGS: Right: Right testes is surgically absent. Left: Testicle is normal in size at 4.6 x 2.3 x 3.1 cm, and homogeneous in echotexture. Epididymis i s normal in size. Increased left epididymal tail vascularity is seen. Small less than 3 mm cyst is se en in left epididymitis. Small left-sided hydrocele is seen. No varicoceles. Overlying scrotal skin is normal in thickness. Doppler: Color and pulse Doppler demonstrate normal and symmetric arterial flow in left testes. IMPRESSION: 1. Normal-appearing left testicle. No evidence of left testicular torsion or discrete testicular lesi on. 2. Suggestion of mild left-sided epididymitis. Small amount of left-sided hydrocele. Tiny left epidid ymal head cyst. 3. Prior right orchiectomy. Reviewed by: Zac Meza MD on 05/09/2020 9:23 PM PST Approved by: Zac Meza MD on 05/09/2020 9:23 PM PST Station ID: [id number]
== END 2020-05-09 21:08 | disposition home or self-care (01) ==
LOC: ED 17:43
DX: N41.0 Acute prostatitis (principal); N43.3 Hydrocele, unspecified; N50.3 Cyst of epididymis; N40.0 Benign prostatic hyperplasia without lower urinary tract symptoms; Z08 Encounter for follow-up examination after completed treatment for malignant neoplasm; Z85.47 Personal history of malignant neoplasm of testis; Z90.79 Acquired absence of other genital organ(s); Z72.0 Tobacco use
CPT/HCPCS: 36415; 76870; 80053; 81003; 83690; 85025; 93975; 96361; 96374; 99284; A9270; J1170; 81001; 87086

== ENCOUNTER 2020-05-17 09:59 | Emergency (ER) | payer OTHER ==
[2020-05-17 10:45] LABS: BASOPHILS % (AUTO) 0.5 %; EOSINOPHILS % (AUTO) 0.7 %; HGB - HEMOGLOBIN 15.4 g/dL (14.0-18.0); LYMPHOCYTES # (AUTO) 1.7 10^3/uL (1.5-3.5); LYMPHOCYTES % (AUTO) 38.9 %; MEAN CORPUSCULAR HEMOGLOBIN 30.1 pg (27.0-31.0); MEAN CORPUSCULAR HGB CONC 34.6 g/dL (32.0-36.0); MEAN CORPUSCULAR VOLUME 86.9 fL (80.0-94.0); MEAN PLATELET VOLUME 10.2 fL (7.4-11.4); MONOCYTES # (AUTO) 0.2 10^3/uL (0.0-1.0); MONOCYTES % (AUTO) 5.7 %; NEUTROPHILS # (AUTO) 2.3 10^3/uL (1.5-6.6); PLT - PLATELET COUNT 257 10^3/uL (130-450); RED BLOOD COUNT 5.12 10^6/uL (4.70-6.10); RED CELL DISTRIBUTION WIDTH 12.2 % (12.0-15.0); WHITE BLOOD COUNT 4.2 x10^3/uL (4.8-10.8)
[2020-05-17 11:02] LABS: ALBUMIN/GLOBULIN RATIO 1.5 (1.0-2.2); BILIRUBIN,TOTAL 0.4 mg/dL (0.2-1.0); CALCIUM 9.7 mg/dL (8.5-10.3); CREATININE 0.8 mg/dL (0.6-1.2); TOTAL PROTEIN 8.3 g/dL (6.7-8.2)
[2020-05-17 11:07] LABS: BILIRUBIN,URINE NEGATIVE (NEGATIVE); GLUCOSE, URINE (UA) NEGATIVE (NEGATIVE); KETONES,URINE (UA) NEGATIVE (NEGATIVE); LEUKOCYTE ESTERASE, URINE NEGATIVE (NEGATIVE); NITRITE,URINE NEGATIVE (NEGATIVE); OCCULT BLOOD,URINE NEGATIVE (NEGATIVE); PH,URINE 6.5 PH (5.0-7.5); PROTEIN,URINE NEGATIVE (NEGATIVE); UROBILINOGEN,URINE 0.2 (NORMAL) E.U./dL (NORMAL)
[2020-05-17 11:15] LABS: CLARITY,URINE CLEAR (CLEAR)
[2020-05-17] MEDS ORDERED: HYDROmorphone 1 MG/ML CARPUJECT IVP STA (11:21)
[2020-05-17] MEDS ORDERED: ONDANSETRON 4 MG/2 ML VIAL IVP STA (11:21)
--- NOTE | 2020-05-17 11:27 | ED Physician Documentation ---
PD HPI ABD PAIN - Stated complaint Stated Complaint: MALE - Chief complaint Chief Complaint: Abd Pain - History obtained from History obtained from: Patient - Additional information Additional information: Patient comes emergency department chief complaint of ongoing pain in his low abdomen and his rectal area, especially defecation. Patient is on day 9 of antibiotics for Prostatitis, and states he does not feel as though is getting any better. He denies any measured fevers or chills, but states he has been sweating through even just a single sheet at night. He also states that he has had very sporadic stooling, with heavy mucus production. He states that sometimes he will stool a whole bunch of times and other times, he will have the urge to go but nothing will come out. No urinary symptoms otherwise. No other complaints at this time. Review of Systems Ten Systems: 10 systems reviewed and negative Constitutional: reports: Reviewed and negative Eyes: reports: Reviewed and negative Ears: reports: Reviewed and negative Nose: reports: Reviewed and negative Throat: reports: Reviewed and negative Cardiac: reports: Reviewed and negative Respiratory: reports: Reviewed and negative GI: reports: Abdominal Pain, Nausea, Diarrhea. denies: Vomiting : reports: Reviewed and negative. denies: Dysuria Skin: reports: Reviewed and negative Musculoskeletal: reports: Reviewed and negative Neurologic: reports: Reviewed and negative Psychiatric: reports: Reviewed and negative Endocrine: reports: Reviewed and negative Immunocompromised: reports: Reviewed and negative PD PAST MEDICAL HISTORY - Past Medical History Past Medical History: Yes Cardiovascular: None Respiratory: None Neuro: Peripheral neuropathy Endocrine/Autoimmune: None GI: None : Benign prostate hypertrophy, Other HEENT: None Psych: Post traumatic stress disorder Musculoskeletal: Other Derm: None - Past Surgical History Past Surgical History: Yes General: Other - Present Medications Home Medications: Ambulatory Orders Medication Instructions Recorded Confirmed Sertraline [Zoloft] 100 mg PO DAILY 01/09/17 05/17/20 Ibuprofen [Motrin] 400 mg PO Q6H PRN #30 tablet 07/14/17 05/17/20 Sulfamethox/Trimeth 800/160 1 each PO BID #84 tab 05/09/20 05/17/20 [Bactrim Ds 800/160] Oxycodone HCl/Acetaminophen 1 each PO Q6HR PRN #20 05/17/20 [Percocet 10-325 mg Tablet] - Allergies Allergies/Adverse Reactions: Allergies Allergy/AdvReac Type Severity Reaction Status Date / Time ketorolac [From Toradol] Allergy Rash Verified 05/17/20 10:05 levofloxacin [From Levaquin] Allergy Unknown Verified 05/17/20 10:05 celecoxib [From Celebrex] AdvReac Headache Verified 05/17/20 10:05 indomethacin AdvReac Headache Verified 05/17/20 10:05 - Social History Does the pt smoke?: No Smoking Status: Never smoker Does the pt drink ETOH?: No Does the pt have substance abuse?: Yes - Immunizations Immunizations are current?: Yes - POLST Patient has POLST: No PD ED PE NORMAL - Vitals Vital signs reviewed: Yes - General General: Alert and oriented X 3, No acute distress, Well developed/nourished - HEENT HEENT: Atraumatic, PERRL, EOMI, Moist mucous membranes - Neck Neck: Supple, no meningeal sign - Cardiac Cardiac: RRR, No murmur - Respiratory Respiratory: No respiratory distress, Clear bilaterally - Abdomen Abdomen: Soft, Non distended, Other (tenderness suprapubic area) - Derm Derm: Warm and dry - Extremities Extremities: No deformity - Neuro Neuro: Alert and oriented X 3 - Psych Psych: Normal mood, Normal affect Results - Vitals Vitals: Oxygen O2 Source Room air - Labs Labs: Laboratory Tests 05/17/20 05/17/20 05/17/20 10:15 10:38 10:38 WBC 4.2 L RBC 5.12 Hgb 15.4 Hct 44.5 MCV 86.9 MCH 30.1 MCHC 34.6 RDW 12.2 Plt Count 257 MPV 10.2 Neut # (Auto) 2.3 Lymph # (Auto) 1.7 [place] # (Auto) 0.2 Eos # (Auto) 0.0 Baso # (Auto) 0.0 Absolute Nucleated RBC 0.00 Nucleated RBC % 0.0 Sodium 138 Potassium 3.6 Chloride 102 Carbon Dioxide 24 Anion Gap 12.0 BUN 8 Creatinine 0.8 Estimated GFR (MDRD) 113 Glucose 100 Calcium 9.7 Total Bilirubin 0.4 AST 23 ALT 18 Alkaline Phosphatase 47 Total Protein 8.3 H Albumin 5.0 Globulin 3.3 Albumin/Globulin Ratio 1.5 Lipase 65 H Urine Color YELLOW Urine Clarity CLEAR Urine pH 6.5 Ur Specific [place] 1.020 Urine Protein NEGATIVE Urine Glucose (UA) NEGATIVE Urine Ketones NEGATIVE Urine Occult Blood NEGATIVE Urine Nitrite NEGATIVE Urine Bilirubin NEGATIVE Urine Urobilinogen 0.2 (NORMAL) Ur Leukocyte Esterase NEGATIVE Ur Microscopic Review NOT INDICATED Urine Culture Comments NOT INDICATED Stl C. diff Tox B Gene 05/17/20 11:50 WBC RBC Hgb Hct MCV MCH MCHC RDW Plt Count MPV Neut # (Auto) Lymph # (Auto) [place] # (Auto) Eos # (Auto) Baso # (Auto) Absolute Nucleated RBC Nucleated RBC % Sodium Potassium Chloride Carbon Dioxide Anion Gap BUN Creatinine Estimated GFR (MDRD) Glucose Calcium Total Bilirubin AST ALT Alkaline Phosphatase Total Protein Albumin Globulin Albumin/Globulin Ratio Lipase Urine Color Urine Clarity Urine pH Ur Specific [place] Urine Protein Urine Glucose (UA) Urine Ketones Urine Occult Blood Urine Nitrite Urine Bilirubin Urine Urobilinogen Ur Leukocyte Esterase Ur Microscopic Review Urine Culture Comments Stl C. diff Tox B Gene NEGATIVE - Rads (name of study) CT abd/pelvis Radiology: Final report received, EMP read indepedently, See rad report (no acute or concerning findings.) PD MEDICAL DECISION MAKING - ED course Complexity details: reviewed old records, reviewed results, re-evaluated patient, considered differential, d/w patient ED course: Pt was treated symptomatically in the ED, and was worked up with labs, UA, and CT abd/pelvis, all of which were unremarkable. I d/w pt that he is very early in a long course of antibiotics, and most likely needs more time on his current regimen before considering a switch. I have given him urology contact information for follow-up, and have refilled his analgesics. We have discussed the usual indications for return. Departure - Departure Disposition: 01 Home, Self Care Clinical Impression: Prostatitis Qualifiers: Prostatitis type: acute Qualified Code(s): N41.0 - Acute prostatitis Condition: Stable Instructions: ED Prostatitis Follow-Up: Gualberto Meneses MD [Physician No Access] - Prescriptions: Oxycodone HCl/Acetaminophen [Percocet 10-325 mg Tablet] 1 each PO Q6HR PRN #20 PRN Reason: Pain Comments: As we have discussed, your labs look good, and your CT scan does not show any concerning findings. Most likely, you are still having pain from the prostatitis itself. Since you have only been on antibiotics for little over a week, and the total course is 6 weeks, you most likely need more time on the antibiotics that you are on. We will give you a a refill on the pain medication to try to make things more comfortable for you. You may take ibuprofen at the same time as the Percocet to maximize the effects of both. If you are not feeling better after the next week, then you will need to follow-up. You may follow-up with your doctor, but you have also been given the number of urology for more specific, specialty oriented care. Discharge Date/Time: 05/17/20 13:24
[2020-05-17] MEDS ORDERED: IOVERSOL 320 100 ML VIAL IVP ONE ×2 (11:35→16:50)
--- NOTE | 2020-05-17 12:29 | CT Report ---
PROCEDURE: Abdomen/Pelvis W INDICATIONS: abd/rectal pain, fever CONTRAST: IV CONTRAST: Optiray 320 ml: 100 PO CONTRAST: *NO PO CONTRAST TECHNIQUE: After the administration of nonionic contrast, 5 mm thick sections acquired from the diaphragms to th e symphysis. 5 mm thick coronal and sagittal reformats were acquired. For radiation dose reduction, the following was used: automated exposure control, adjustment of mA and/or kV according to patient size. COMPARISON: Prior abdominal ultrasound 11/27/2017 reviewed. FINDINGS: Image quality: Excellent. ABDOMEN: Lung bases: Lung bases are clear. Heart size is normal. Solid organs: Liver and spleen are normal in size and enhancement. Gallbladder appears contracted c entered on image 33. Biliary system is non dilated. Pancreas enhances normally. No adrenal nodules . Kidneys demonstrate normal size and enhancement, without hydronephrosis. Peritoneum and bowel: Bowel loops demonstrate normal wall thickness and caliber. No free fluid or a ir. Nodes and vessels: No retroperitoneal or mesenteric adenopathy by size criteria. Aorta and inferior vena cava are normal in size. Note is made of a pattern of surgical clips bilaterally along the ret roperitoneum suggestive of prior lymph node dissection. No enlarged or inflamed lymph nodes are found . Miscellaneous: No ventral hernias. PELVIS: Genitourinary: Bladder wall thickness is normal. Note is made of a water density ovoid structure wi th a faint peripheral rim of calcification within the area of the scrotum, likely representing a test icular prosthesis. Miscellaneous: No inguinal hernias or adenopathy. Surgical clips along the retroperitoneum indicate likelihood of pelvic extension of lymph node resection previously. Bones: No suspicious bony lesions. No vertebral body compression fractures. IMPRESSION: Prior lymph node excision along the retroperitoneum of the abdomen and pelvis, perhaps r elated to prior testicular carcinoma in this patient with what appears to be a unilateral testicular prosthesis seen at the lowest imaging margin. Throughout the lower chest, abdomen and pelvis no area of infection or neoplasm is found. Reviewed by: Forrest Novak MD on 05/17/2020 12:27 PM PST Approved by: Forrest Novak MD on 05/17/2020 12:27 PM PST Station ID: [id number]
[2020-05-17 13:16] VITALS: BP 129/89
== END 2020-05-17 13:24 | disposition home or self-care (01) ==
LOC: ED 09:59
DX: N41.0 Acute prostatitis (principal)
CPT/HCPCS: 36415; 74177; 80053; 81003; 81599; 83690; 85025; 87493; 96374; 99283; 99284; J1170; Q9967; 81001; 87045; 87046; 87086

== ENCOUNTER 2020-06-27 12:29 | Emergency (ER) | payer OTHER ==
[2020-06-27 12:50] VITALS: BP 136/96
[2020-06-27] MEDS ORDERED: HYDROmorphone 1 MG/ML CARPUJECT IVP STA ×2 (13:36→15:44)
--- NOTE | 2020-06-27 13:37 | ED Physician Documentation ---
PD HPI ABD PAIN - Stated complaint Stated Complaint: SURGERY COMPLICATIONS - Chief complaint Chief Complaint: Abd Pain - History obtained from History obtained from: Patient - Additional information Additional information: 30-year-old gentleman with remote history of testicular cancer status post retroperitoneal lymph node dissection about 7 years ago and chronic bowel issues had a colonoscopy yesterday. He states that the anesthesia quality was not ideal and he woke up during the procedure and started moving. Today he has had a lot of pelvic pain. He has had colonoscopies before and was never this bad. He denies fevers or chills. He has chronic sweats. No vomiting. Review of Systems Ten Systems: 10 systems reviewed and negative Constitutional: reports: Reviewed and negative Eyes: reports: Reviewed and negative Ears: reports: Reviewed and negative Nose: reports: Reviewed and negative Throat: reports: Reviewed and negative Cardiac: reports: Reviewed and negative PD PAST MEDICAL HISTORY - Past Medical History Cardiovascular: None Respiratory: None Neuro: Peripheral neuropathy Endocrine/Autoimmune: None GI: None : Benign prostate hypertrophy, Other HEENT: None Psych: Post traumatic stress disorder Musculoskeletal: Other Derm: None - Past Surgical History Past Surgical History: Yes General: Other - Present Medications Home Medications: Ambulatory Orders Medication Instructions Recorded Confirmed Sertraline [Zoloft] 100 mg PO DAILY 01/09/17 05/17/20 Ibuprofen [Motrin] 400 mg PO Q6H PRN #30 tablet 07/14/17 05/17/20 Sulfamethox/Trimeth 800/160 1 each PO BID #84 tab 05/09/20 05/17/20 [Bactrim Ds 800/160] Oxycodone HCl/Acetaminophen 1 each PO Q6HR PRN #20 05/17/20 [Percocet 10-325 mg Tablet] Oxycodone HCl/Acetaminophen 1 - 2 each PO Q6H PRN #7 tablet 06/27/20 [Percocet 5-325 mg Tablet] - Allergies Allergies/Adverse Reactions: Allergies Allergy/AdvReac Type Severity Reaction Status Date / Time ketorolac [From Toradol] Allergy Rash Verified 06/27/20 12:45 levofloxacin [From Levaquin] Allergy Unknown Verified 06/27/20 12:45 celecoxib [From Celebrex] AdvReac Headache Verified 06/27/20 12:45 indomethacin AdvReac Headache Verified 06/27/20 12:45 - Social History Does the pt smoke?: No Smoking Status: Never smoker Does the pt drink ETOH?: No Does the pt have substance abuse?: Yes - Immunizations Immunizations are current?: Yes - POLST Patient has POLST: No PD ED PE NORMAL - Vitals Vital signs reviewed: Yes - General General: Alert and oriented X 3, No acute distress - Cardiac Cardiac: RRR, No murmur - Respiratory Respiratory: No respiratory distress, Clear bilaterally - Abdomen Abdomen: Other (Some pelvic tenderness without guarding or rebound. No upper abdominal tenderness. No surgical signs generally.) - Neuro Neuro: Alert and oriented X 3, Normal speech Results - Vitals Vitals: Vital Signs - 24 hr 06/27/20 12:47 Temperature 37 C Heart Rate 90 Respiratory 20 Rate Blood Pressure 136/96 H O2 Saturation 97 Oxygen O2 Source Room air - Labs Labs: Laboratory Tests 06/27/20 06/27/20 14:05 14:05 WBC 7.1 RBC 5.27 Hgb 16.0 Hct 46.0 MCV 87.3 MCH 30.4 MCHC 34.8 RDW 12.9 Plt Count 255 MPV 10.2 Neut # (Auto) 5.1 Lymph # (Auto) 1.6 [place] # (Auto) 0.3 Eos # (Auto) 0.1 Baso # (Auto) 0.0 Absolute Nucleated RBC 0.00 Nucleated RBC % 0.0 Sodium 142 Potassium 3.4 L Chloride 101 Carbon Dioxide 26 Anion Gap 15.0 H BUN 8 Creatinine 0.8 Estimated GFR (MDRD) 113 Glucose 92 Calcium 10.7 H Total Bilirubin 0.4 AST 25 ALT 19 Alkaline Phosphatase 54 Total Protein 8.7 H Albumin 5.2 Globulin 3.5 Albumin/Globulin Ratio 1.5 Lipase 87 H PD MEDICAL DECISION MAKING - ED course ED course: 30-year-old gentleman presents with pain after colonoscopy. Minimally tender on exam. Concern for microperforation but no evidence of this on CT and his labs were normal. Departure - Departure Disposition: 01 Home, Self Care Clinical Impression: Post-op pain Condition: Stable Record reviewed to determine appropriate education?: Yes Instructions: Colonoscopy Prescriptions: Oxycodone HCl/Acetaminophen [Percocet 5-325 mg Tablet] 1 - 2 each PO Q6H PRN #7 tablet PRN Reason: pain Comments: Recheck tomorrow if not improved, follow-up with your primary care physician and GI as scheduled. Discharge Date/Time: 06/27/20 16:10
[2020-06-27] MEDS ORDERED: IOVERSOL 320 100 ML VIAL IVP ONE ×3 (13:56→17:58)
[2020-06-27 14:27] LABS: ALBUMIN 5.2 g/dL (3.2-5.5); ALBUMIN/GLOBULIN RATIO 1.5 (1.0-2.2); BILIRUBIN,TOTAL 0.4 mg/dL (0.2-1.0); CALCIUM 10.7 mg/dL (8.5-10.3); CREATININE 0.8 mg/dL (0.6-1.2); POTASSIUM 3.4 mmol/L (3.5-5.0); TOTAL PROTEIN 8.7 g/dL (6.7-8.2)
[2020-06-27 14:36] LABS: BASOPHILS % (AUTO) 0.4 %; EOSINOPHILS # (AUTO) 0.1 10^3/uL (0.0-0.7); EOSINOPHILS % (AUTO) 0.8 %; LYMPHOCYTES # (AUTO) 1.6 10^3/uL (1.5-3.5); LYMPHOCYTES % (AUTO) 21.9 %; MEAN CORPUSCULAR HEMOGLOBIN 30.4 pg (27.0-31.0); MEAN CORPUSCULAR HGB CONC 34.8 g/dL (32.0-36.0); MEAN CORPUSCULAR VOLUME 87.3 fL (80.0-94.0); MEAN PLATELET VOLUME 10.2 fL (7.4-11.4); MONOCYTES # (AUTO) 0.3 10^3/uL (0.0-1.0); NEUTROPHILS # (AUTO) 5.1 10^3/uL (1.5-6.6); NEUTROPHILS % (AUTO) 72.6 %; PLT - PLATELET COUNT 255 10^3/uL (130-450); RED BLOOD COUNT 5.27 10^6/uL (4.70-6.10); RED CELL DISTRIBUTION WIDTH 12.9 % (12.0-15.0); WHITE BLOOD COUNT 7.1 x10^3/uL (4.8-10.8)
--- NOTE | 2020-06-27 15:54 | CT Report ---
PROCEDURE: Abdomen/Pelvis W INDICATIONS: IV only, post c scope pain CONTRAST: IV CONTRAST: Optiray 320 ml: 100 PO CONTRAST: *NO PO CONTRAST TECHNIQUE: After the administration of weight appropriate dose of intravenous contrast, 5 mm thick sections acqu ired from the diaphragms to the symphysis. 5 mm thick coronal and sagittal reformats were acquired. For radiation dose reduction, the following was used: automated exposure control, adjustment of mA and/or kV according to patient size. COMPARISON: 05/17/2020 FINDINGS: Image quality: Excellent. ABDOMEN: Lung bases: Lung bases are clear. Heart size is normal. Solid organs: Liver and spleen are normal in size and enhancement. Gallbladder is decompressed. Bi liary system is non dilated. Pancreas enhances normally. No adrenal nodules. Kidneys demonstrate n ormal size and enhancement, without hydronephrosis. Peritoneum and bowel: Bowel loops demonstrate normal wall thickness and caliber. No free fluid or a ir. Normal appendix. Nodes and vessels: Stable post surgical changes from previous lymph node resection of the retroperit oneum. No new or suspicious retroperitoneal adenopathy. No mesenteric adenopathy by size criteria. A camila and inferior vena cava are normal in size. Miscellaneous: No ventral hernias. PELVIS: Genitourinary: Bladder wall thickness is normal. Status post right orchiectomy with right testicula r prosthesis. Miscellaneous: No inguinal hernias or pelvic adenopathy. Bones: No suspicious bony lesions. No acute vertebral body compression fractures. IMPRESSION: 1. CT abdomen and pelvis without acute abnormalities. No evidence for free air or free fluid. 2. Status post right orchiectomy with right testicular prosthesis. 3. Stable postsurgical changes from retroperitoneal lymph node resection. No evidence for abnormal re troperitoneal adenopathy. 4. Normal appendix. Reviewed by: Mauricio Buckley MD on 06/27/2020 3:53 PM PDT Approved by: Mauricio Buckley MD on 06/27/2020 3:53 PM PDT Station ID: [id number]
== END 2020-06-27 16:10 | disposition home or self-care (01) ==
LOC: ED 12:29
DX: G89.18 Other acute postprocedural pain (principal); R10.2 Pelvic and perineal pain; Z08 Encounter for follow-up examination after completed treatment for malignant neoplasm; Z85.47 Personal history of malignant neoplasm of testis
CPT/HCPCS: 36415; 74177; 80053; 83690; 85025; 96374; 96376; 99283; 99284; J1170; Q9967

== ENCOUNTER 2020-08-25 16:26 | Emergency (ER) | payer OTHER ==
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
[2020-08-25] MEDS ORDERED: HYDROmorphone 1 MG/ML CARPUJECT IM STA (16:48)
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
[2020-08-25 17:27] VITALS: BP 133/80
== END 2020-08-25 17:27 | disposition home or self-care (01) ==
LOC: ED 16:26
DX: M54.41 Lumbago with sciatica, right side (principal)
CPT/HCPCS: 96372; 99283; 99284; J1170

== ENCOUNTER 2021-05-09 15:40 | Emergency (ER) | payer SELFPAY ==
[2021-05-09 16:19] LABS: BASOPHILS % (AUTO) 0.5 %; EOSINOPHILS # (AUTO) 0.1 10^3/uL (0.0-0.7); EOSINOPHILS % (AUTO) 0.8 %; HCT - HEMATOCRIT 48.2 % (42.0-52.0); HGB - HEMOGLOBIN 16.9 g/dL (14.0-18.0); LYMPHOCYTES % (AUTO) 25.8 %; MEAN CORPUSCULAR HEMOGLOBIN 30.5 pg (27.0-31.0); MEAN CORPUSCULAR HGB CONC 35.1 g/dL (32.0-36.0); MEAN PLATELET VOLUME 9.9 fL (7.4-11.4); MONOCYTES # (AUTO) 0.4 10^3/uL (0.0-1.0); MONOCYTES % (AUTO) 5.4 %; NEUTROPHILS # (AUTO) 5.3 10^3/uL (1.5-6.6); NEUTROPHILS % (AUTO) 67.4 %; PLT - PLATELET COUNT 309 10^3/uL (130-450); RED BLOOD COUNT 5.54 10^6/uL (4.70-6.10); RED CELL DISTRIBUTION WIDTH 12.4 % (12.0-15.0); WHITE BLOOD COUNT 7.9 x10^3/uL (4.8-10.8)
[2021-05-09 16:33] LABS: ALBUMIN 5.2 g/dL (3.2-5.5); ALBUMIN/GLOBULIN RATIO 1.6 (1.0-2.2); BILIRUBIN,TOTAL 0.7 mg/dL (0.2-1.0); CREATININE 0.9 mg/dL (0.6-1.2); POTASSIUM 3.9 mmol/L (3.5-5.0); TOTAL PROTEIN 8.4 g/dL (6.7-8.2)
[2021-05-09] MEDS ORDERED: HYDROmorphone 1 MG/ML CARPUJECT IM STA (16:38)
[2021-05-09 16:39] LABS: BILIRUBIN,URINE NEGATIVE (NEGATIVE); GLUCOSE, URINE (UA) NEGATIVE (NEGATIVE); KETONES,URINE (UA) 15 mg/dL (NEGATIVE); LEUKOCYTE ESTERASE, URINE NEGATIVE (NEGATIVE); NITRITE,URINE NEGATIVE (NEGATIVE); OCCULT BLOOD,URINE NEGATIVE (NEGATIVE); PH,URINE 7.5 PH (5.0-7.5); PROTEIN,URINE NEGATIVE (NEGATIVE); UROBILINOGEN,URINE 1 (NORMAL) E.U./dL (NORMAL)
[2021-05-09 16:40] LABS: CLARITY,URINE CLEAR (CLEAR)
--- NOTE | 2021-05-09 16:41 | ED Physician Documentation ---
History of Present Illness - Stated complaint Stated Complaint: MALE - Chief complaint Chief Complaint: Abd Pain - Additonal information Additional information: 31-year-old male presents emergency department for evaluation of cute onset p rostate pain. He reports that since this morning he has had to strain to urinate but he is able to fully empty his bladder. He denies any dysuria. Past medical history is most significant for history of right testicular cancer status post oophorectomy with a testicular prosthesis in place. He also has a history of chronic prostatitis. He was scheduled to have surgery related to this but he became Covid positive and could not undergo the surgery. He is followed by urology through [facility]. Review of Systems Constitutional: reports: Reviewed and negative Ears: reports: Reviewed and negative Nose: reports: Reviewed and negative Cardiac: reports: Reviewed and negative Respiratory: reports: Reviewed and negative GI: reports: Reviewed and negative : reports: Other (prostate pain). denies: Dysuria, Frequency, Discharge PD PAST MEDICAL HISTORY - Past Medical History Cardiovascular: None Respiratory: None Neuro: Peripheral neuropathy Endocrine/Autoimmune: None GI: None : Benign prostate hypertrophy, Other HEENT: None Psych: Post traumatic stress disorder Musculoskeletal: Other Derm: None - Past Surgical History Past Surgical History: Yes General: Other - Present Medications Home Medications: Ambulatory Orders Medication Instructions Recorded Confirmed Lidocaine Patch 5% [Lidoderm Patch] 1 patch TOP DAILY PRN #10 patch 08/25/20 Oxycodone HCl/Acetaminophen 1 - 2 each PO Q6H PRN #10 tablet 08/25/20 [Percocet 5-325 mg Tablet] predniSONE [Deltasone] 20 mg PO [id number] #21 tab 08/25/20 HYDROcod/ACETAM 5/325 [[place] 5/325] 1 tablet PO BID PRN #5 tablet 05/09/21 Tamsulosin HCl [Flomax] 0.4 mg PO DAILY #14 cap 05/09/21 - Allergies Allergies/Adverse Reactions: Allergies Allergy/AdvReac Type Severity Reaction Status Date / Time barium iodide Allergy Unknown Verified 05/09/21 15:49 ketorolac [From Toradol] Allergy Rash Verified 05/09/21 15:49 levofloxacin [From Levaquin] Allergy Unknown Verified 05/09/21 15:49 celecoxib [From Celebrex] AdvReac Headache Verified 05/09/21 15:49 indomethacin AdvReac Headache Verified 05/09/21 15:49 - Social History Does the pt smoke?: No Smoking Status: Never smoker Does the pt drink ETOH?: No Does the pt have substance abuse?: Yes - Immunizations Immunizations are current?: Yes - POLST Patient has POLST: No PD ED PE EXPANDED - General General: Alert, No acute distress - Cardiac Cardiac: Regular Rate, Radial strong equal, Pedal strong equal, Cap refill < 2 sec. No: Murmur Present - Respiratory Respiratory: Clear to ausultation ene. No: Distress, Labored - Abdomen Abdomen: Normal Bowel sounds. No: Tender to palpation - Male Male : Other (Prostate is mildly tender but not enlarged.) - Derm Derm: Normal color, Warm and dry. No: Rash - Extremities Extremities: Normal. No: Deformity, Tenderness Results - Vitals Vitals: Vital Signs - 24 hr 05/09/21 05/09/21 15:44 17:12 Temperature 36.6 C Heart Rate 112 H 71 Respiratory 20 18 Rate Blood Pressure 140/93 H 104/70 O2 Saturation 98 99 Oxygen O2 Source Room air - Labs Labs: Laboratory Tests 05/09/21 05/09/21 05/09/21 16:14 16:14 16:30 WBC 7.9 RBC 5.54 Hgb 16.9 Hct 48.2 MCV 87.0 MCH 30.5 MCHC 35.1 RDW 12.4 Plt Count 309 MPV 9.9 Neut # (Auto) 5.3 Lymph # (Auto) 2.0 [place] # (Auto) 0.4 Eos # (Auto) 0.1 Baso # (Auto) 0.0 Absolute Nucleated RBC 0.00 Nucleated RBC % 0.0 Sodium 137 Potassium 3.9 Chloride 99 L Carbon Dioxide 26 Anion Gap 12.0 BUN 5 L Creatinine 0.9 Estimated GFR (MDRD) 98 Glucose 101 H Calcium 10.0 Total Bilirubin 0.7 AST 19 ALT 17 Alkaline Phosphatase 49 Total Protein 8.4 H Albumin 5.2 Globulin 3.2 Albumin/Globulin Ratio 1.6 Lipase 38 Urine Color YELLOW Urine Clarity CLEAR Urine pH 7.5 Ur Specific [place] 1.015 Urine Protein NEGATIVE Urine Glucose (UA) NEGATIVE Urine Ketones 15 H Urine Occult Blood NEGATIVE Urine Nitrite NEGATIVE Urine Bilirubin NEGATIVE Urine Urobilinogen 1 (NORMAL) Ur Leukocyte Esterase NEGATIVE Ur Microscopic Review NOT INDICATED Urine Culture Comments NOT INDICATED PD MEDICAL DECISION MAKING - ED course Complexity details: reviewed results, re-evaluated patient, considered differential, d/w patient ED course: 31-year-old male presents emergency department for evaluation of acute onset lower pelvic or prostatic pain. He reports a history of chronic prostatitis for which he is being evaluated by Dr. Dooley through [facility]. 9 patient reports difficulty initiating the urine stream but no dysuria and he is able to fully empty his bladder. He also has a history of colitis but is not having any abdominal tenderness black or bloody stools. Screening labs today show no findings of an infection in his urine. No leukocytosis and an unremarkable electrolyte panel. I did do a limited prostate exam and did find tenderness though not an enlarged or boggy prostate. I did offer the patient pelvic CT for further differentiation of his prostatic pain but he declined that today. Thus he will be started on Flomax to help with the difficulty urinating. He will follow up with Dr. Dooley. A limited prescription for hydrocodone is being sent to the pharmacy. I am prescribing a short course of short-acting opioid pain medication for this patient. I have reviewed the patients [employer] and no concerning findings were noted. I have discussed that the opioids are for short term therapy only, and will not be refilled from the ED. Departure - Departure Disposition: 01 Home, Self Care Clinical Impression: Chronic prostatitis Condition: Stable Follow-Up: MENDOZA DOOLEY MD [Physician No Access] - Prescriptions: Tamsulosin HCl [Flomax] 0.4 mg PO DAILY #14 cap HYDROcod/ACETAM 5/325 [[place] 5/325] 1 tablet PO BID PRN #5 tablet PRN Reason: Pain Comments: Ronaldo you were seen today in the ER for pain in your prostate area as well as difficulty initiating the voided urine. Your screening labs and urine do not show signs of infection. You were offered a pelvic CT today but declined that which is appropriate given your history. I am sending a prescription to the [facility] drug for Flomax. This is a medication that will likely make it easier for you to initiate the stream of urine. I am also sending a limited prescription for hydrocodone to the pharmacy. It is very important to follow-up with Dr. Dooley to discuss this recurrent problem. If at any point you develop fevers, lose the ability to urinate or become obstructed you are to return immediately to the ER for second evaluation.
[2021-05-09] MEDS ORDERED: HYDROcod/ACETAM 5/325 MG TABLET PO STA (17:36)
[2021-05-09 18:06] VITALS: BP 138/70
== END 2021-05-09 18:05 | disposition home or self-care (01) ==
LOC: ED 15:40
DX: N41.1 Chronic prostatitis (principal); R39.198 Other difficulties with micturition; Z85.47 Personal history of malignant neoplasm of testis; Z90.79 Acquired absence of other genital organ(s)
CPT/HCPCS: 36415; 80053; 81003; 83690; 85025; 96372; 99283; A9270; J1170; 81001; 87086

== ENCOUNTER 2021-06-11 12:18 | Emergency (ER) | payer SELFPAY ==
--- OUTSIDE RECORDS SUMMARY | 2021-06-11 12:37 | EXTERNAL MEDICAL SUMMARY RPT | Continuity of Care Document ---
:1990 Author Organization [place] Address [address] [place] [address] Phone Care Team Providers Name Role Phone Nikhil Unavailable Unavailable Allergies No information. Encounters No information. Medications date description facility 20210315 Phenazopyridine hydrochloride 200 MG Or al Tablet [facility] Problems date description facility 20210315 Prostatodynia syndrome [facility] 20210315 Painful ejaculation [facility] 20210315 Other [facility] 20210312 [facility] 20210312 Post-traumatic stress disorder, unspeci fied [facility] 20210312 [facility] ejaculation [facility] 20210312 Other specified disorders of the male [facility] organs [facility] 20210312 Contact with and (suspected) exposure t o COVID-19 [facility] Procedures date description facility 20210315 General Physician [facility] Results No information. Vital Signs date measurement value source 20210315 weight_standard 67 lb 20210315 weight_metric 30.39 kg 20210315 temperature_standard 97 F 20210315 temperature_metric 36.11 C 20210315 respiration_rate 14 /min 20210315 height_standard 70 in 20210315 height_metric 177.8 cm 20210315 heart_rate 70 /min 20210315 BP_systolic 110 mm[Hg] 50708208 BP_diastolic 70 mm[Hg] 20210315 BMI 21.2 kg/m2
[2021-06-11] MEDS ORDERED: HYDROmorphone 1 MG/ML CARPUJECT IM STA (14:58)
--- NOTE | 2021-06-11 15:09 | ED Physician Documentation ---
PD HPI BACK PAIN - Stated complaint Stated Complaint: LOW BACK PX - Chief complaint Chief Complaint: Back Pain - History obtained from History obtained from: Patient - History of Present Illness Timing - onset: How many days ago (2) Timing - duration: Days (2) Timing - details: Gradual onset Pain level max: 10 Pain level now: 10 Location: Lower, Right Quality: Pain, Spasm Associated symptoms: No: Fever, Weakness, Numbness, Incontinent of urine, Unable to urinate, Hematuria, Incontinent of stool Improves with: Rest Worsened by: Movement Contributing factors: No: Lifting, Twisting, Trauma, Anticoagulated, Cancer, IVDA - Additional information Additional information: Patient is a 31-year-old male with a longstanding history of chronic back pain. He states that 2 days ago at home he injured his back again. He was at work today and states that he was in tears secondary to pain. He states that the pain is similar to his chronic back issues, right-sided, radiating down the right leg. No weakness or incontinence. Worse with movement, better with rest. Review of Systems Constitutional: denies: Fever, Chills GI: denies: Nausea, Vomiting, Diarrhea Skin: denies: Rash Musculoskeletal: denies: Neck pain Neurologic: denies: Focal weakness, Numbness, Headache PD PAST MEDICAL HISTORY - Past Medical History Past Medical History: Yes Cardiovascular: None Respiratory: None Neuro: Peripheral neuropathy Endocrine/Autoimmune: None GI: None : Benign prostate hypertrophy, Other HEENT: None Psych: Post traumatic stress disorder Musculoskeletal: Other Derm: None - Past Surgical History Past Surgical History: Yes General: Other - Present Medications Home Medications: Ambulatory Orders Medication Instructions Recorded Confirmed Lidocaine Patch 5% [Lidoderm Patch] 1 patch TOP DAILY PRN #10 patch 08/25/20 Oxycodone HCl/Acetaminophen 1 - 2 each PO Q6H PRN #10 tablet 08/25/20 [Percocet 5-325 mg Tablet] predniSONE [Deltasone] 20 mg PO [id number] #21 tab 08/25/20 HYDROcod/ACETAM 5/325 [[place] 5/325] 1 tablet PO BID PRN #5 tablet 05/09/21 Tamsulosin HCl [Flomax] 0.4 mg PO DAILY #14 cap 05/09/21 Oxycodone HCl [Roxicodone] 5 mg PO Q6H PRN #10 tablet 06/11/21 - Allergies Allergies/Adverse Reactions: Allergies Allergy/AdvReac Type Severity Reaction Status Date / Time barium iodide Allergy Unknown Verified 06/11/21 12:30 ketorolac [From Toradol] Allergy Rash Verified 06/11/21 12:30 levofloxacin [From Levaquin] Allergy Unknown Verified 06/11/21 12:30 celecoxib [From Celebrex] AdvReac Headache Verified 06/11/21 12:30 indomethacin AdvReac Headache Verified 06/11/21 12:30 - Social History Does the pt smoke?: No Smoking Status: Never smoker Does the pt drink ETOH?: No Does the pt have substance abuse?: Yes - Immunizations Immunizations are current?: Yes - POLST Patient has POLST: No PD ED PE NORMAL - Vitals Vital signs reviewed: Yes - General General: Alert and oriented X 3, No acute distress, Well developed/nourished - HEENT HEENT: PERRL, Moist mucous membranes - Neck Neck: Supple, no meningeal sign - Cardiac Cardiac: RRR, Strong equal pulses - Respiratory Respiratory: No respiratory distress, Clear bilaterally - Abdomen Abdomen: Soft, Non tender, Non distended - Back Back: No spinal TTP (No midline tenderness to palpation or percussion. Mild paraspinal spasm right lower lumbar) - Derm Derm: Warm and dry - Extremities Extremities: No edema - Neuro Neuro: Alert and oriented X 3, No motor deficit, No sensory deficit, Other (Normal bilateral lower extremity patellar and ankle jerk reflexes. Normal great toe extension bilaterally. no saddle anesthesia) - Psych Psych: Normal mood, Normal affect Results - Vitals Vitals: Vital Signs - 24 hr 06/11/21 06/11/21 12:27 15:26 Temperature 36.4 C L Heart Rate 87 56 L Respiratory 16 14 Rate Blood Pressure 141/80 H 135/85 H O2 Saturation 100 99 Oxygen O2 Source Room air PD MEDICAL DECISION MAKING - ED course Complexity details: reviewed old records, considered differential (No cauda equina, no spinal epidural abscess, no fracture, no aortic dissection or evidence of aneursym rupture), d/w patient ED course: Patient with his usual back pain, with sciatica. Will place on pain medication for home. Encouraged gentle stretching. No evidence of cauda equina, epidural abscess. No indication for emergent imaging. Patient counseled regarding signs and symptoms for which I believe and urgent re-evaluation would be necessary. Patient with good understanding of and agreement to plan and is comfortable going home at this time This document was made in part using voice recognition software. While efforts are made to proofread this document, sound alike and grammatical errors may occur. Departure - Departure Disposition: Home, Self Care Clinical Impression: Sciatica Qualifiers: Laterality: right Qualified Code(s): M54.31 - Sciatica, right side Condition: Good Instructions: ED Sciatica Follow-Up: CHAPARRO VAZQUEZ DO [Primary Care Provider] - Within 1 week Prescriptions: Oxycodone HCl [Roxicodone] 5 mg PO Q6H PRN #10 tablet PRN Reason: Pain Comments: Please follow-up with your doctor for further care. Return if you worsen. Your prescriptions were sent to the [facility] pharmacy. I am prescribing a short course of narcotic pain medication for you. These are potentially dangerous and addictive medications that should be used carefully. These medications may constipate you. Take an [id number] stool softener (docusate) twice daily with plenty of water while taking these medications. If you go 24 hours without a bowel movement, take [id number] miralax, per package instructions. Do not drink or drive while taking these medications. If you received narcotic or sedating medications while in the emergency department, do not drive for 24 hours. Store this medication in a safe, secure place and out of reach of children. It is a violation of federal law to give or sell this medication to another person or to use in a manner other than prescribed. The ED will not refill narcotic prescriptions, including prescriptions lost or stolen. To dispose of unwanted medications: 1. [facility] at [address] in [place] has a medication drop box. They accept prescription medications (in pill form) Friday through Friday 9:00 a.m. to 5:00 p.m. 2. [facility] accepts prescription medications (in pill form only) for disposal year round. Call for more information. 3. Contact the [facility] for the next [facility] sponsored prescription drug collection event. , [phone], or [phone]; Forms: Activity restrictions Discharge Date/Time: 06/11/21 15:27
[2021-06-11 15:27] VITALS: BP 135/85
== END 2021-06-11 15:27 | disposition home or self-care (01) ==
LOC: ED 12:18
DX: M54.31 Sciatica, right side (principal); G89.29 Other chronic pain
CPT/HCPCS: 96372; 99283; 99284; J1170